=== PATIENT | male | born 1990 | race Caucasian/White ===

== ENCOUNTER 2022-03-21 21:45 | Observation (INO) | payer BC, SELFPAY ==
[2022-03-21] VITALS (8 sets, daily range): BP systolic 136–165; BP diastolic 56–96; PULSE 125–157; RESP 16–18; TEMP 37.7; O2SAT 97–100; BMI 24.0
--- NOTE | 2022-03-21 21:54 | ED_ITS ---
HPI - Chest Pain General: Chief Complaint: Chest Pain Stated Complaint: CHEST PAIN Time Seen by Provider: 03/21/22 21:46 Source: patient and EMS Mode of arrival: EMS Limitations: no limitations History of Present Illness: 32-year-old male has a history of hypertension states that he started having palpitations roughly 5 6 hours ago. He states that has been constant his heart rates been in the 150s. He does appear to be in SVT and called EMS they tried vagal maneuvers that were unsuccessful. He de nies any worsening proving factors denies any chest pain. Associated symptoms: Reports palpitations; Deny abdominal pain, dyspnea, fever(s), nausea or vomiting Review of Systems Const: Denies: fever(s), chills, body aches or change in appetite Eyes: Denies: blurry vision or eye discomfort ENMT: Denies: throat pain or dental pain Card: Reports: palpitations Resp: Denies: dyspnea GI: Denies: abdominal pain, nausea, vomiting or diarrhea : Denies: dysuria Musc: Denies: neck pain or back pain Skin/Breast: Denies: rash Neuro: Denies: headache(s) Psych: Denies: depression Bry/Lymph: Denies: easy bruising All/Imm: Denies: urticaria PFSH ED PFSH: Medical History (Updated 03/21/22 @ 21:55 by Lavonne Isabel MD) Hypertension Social History (Updated 03/21/22 @ 21:55 by Lavonne Isabel MD) Smoking and tobacco status: former smoker Physical Exam Const: COMMON NORMALS: no acute distress, patient oriented x3 and healthy appearing HENMT: COMMON NORMALS: normocephalic and atraumatic HEAD & SCALP: normocephalic and atraumatic Eye: COMMON NORMALS: Equal, round and reactive pupils present and EOMs intact bilaterally PUPIL: Yes Equal, round and reactive pupils present Neck/C-Spine: COMMON NORMALS: full ROM and supple Chest: COMMONS NORMALS: normal inspection of the chest and normal palpation of entire chest wall Resp: COMMON NORMALS: normal respiratory effort, No retractions, No use of accessory muscles and clear to auscultation bilaterally AUSCULTATION: clear to auscultation bilaterally Cardio: COMMON NORMALS: regular rhythm and No murmurs present (Cardio) RATE: tachycardic RHYTHM: regular rhythm GI: COMMON NORMALS: Normal to inspection, nondistended, normoactive bowel sounds present, Soft to palpation, non-tender and no masses PALPATION: Yes Soft to palpation Extremity: COMMON NORMALS: normal to inspection and full ROM Neuro: COMMON NORMALS: patient oriented x3, moves all extremities and no focal motor deficits Psych: COMMON NORMALS: mental status grossly normal, Normal thought process present and cooperative THOUGHT PROCESS: Normal thought process present Skin: COMMON NORMALS: no rashes or lesions noted and no wounds GENERAL SKIN EXAM: no rashes or lesions noted Course Vital Signs: Vital signs: Vital Signs Temperature 99.9 F H 03/21/22 22:20 Pulse Rate 125 H 03/21/22 23:15 Respiratory Rate 16 03/21/22 23:15 Blood Pressure 145/77 03/21/22 23:15 Pulse Oximetry 97 03/21/22 23:15 MDM - Chest Pain Medical Decision Making Patient presents with atrial flutter his heart rate when he first got here is in the 150s 160s believe it was SVT gave him adenosine with no response did give him a dose of Cardizem he is slowed down to the 1 teens EKG does show atrial flutter. He has no history of atrial flutter new onset his drug screen here is negative D-dimer is negative first troponin is negative spoke to hospitalist will admit patient is on a Cardizem drip currently. Lab Data : 03/21/22 23:44 03/21/22 23:44 Radiology Impressions Chest X-Ray 03/21/22 22:16 IMPRESSION: No acute findings. Laboratory Results WBC 8.0 10^3/uL (4.0-10.0) 03/21/22 23:44 RBC 3.89 10^6/uL (4.1-5.3) L 03/21/22 23:44 Hgb 12.2 g/dL (11.7-16.6) 03/21/22 23:44 Hct 34.5 % (42.0-52.0) L 03/21/22 23:44 MCV 88.7 fl (80-94) 03/21/22 23:44 MCH 31.4 pg (28.0-34.0) 03/21/22 23:44 MCHC 35.4 g/dL (30.0-36.0) 03/21/22 23:44 RDW 12.5 % (12.1-15.1) 03/21/22 23:44 Plt Count 202 10^3/cmm (130-400) 03/21/22 23:44 MPV 11.5 fL (7.4-10.4) H 03/21/22 23:44 Neut % (Auto) 81.6 % 03/21/22 23:44 Lymph % (Auto) 5.1 % 03/21/22 23:44 Parke % (Auto) 11.1 % 03/21/22 23:44 Eos % (Auto) 1.1 % 03/21/22 23:44 Baso % (Auto) 0.5 % 03/21/22 23:44 Neut # (Auto) 6.52 10^3/uL (1.8-7.7) 03/21/22 23:44 Lymph # (Auto) 0.4 10^3/uL (0.8-4.8) L 03/21/22 23:44 Parke # (Auto) 0.9 10^3/uL (0.2-0.9) 03/21/22 23:44 Eos # (Auto) 0.1 10^3/uL (0.0-0.8) 03/21/22 23:44 Baso # (Auto) 0.0 10^3/uL (0.0-0.1) 03/21/22 23:44 Nucleated RBC % (auto) 0 % 03/21/22 23:44 Nucleated RBCs # 0.0 /100WBC 03/21/22 23:44 D-Dimer 0.20 ug/mIFEU (0-0.59) 03/21/22 23:44 Sodium 135 mmol/L (136-145) L 03/21/22 23:44 Potassium 3.6 mmol/L (3.5-5.1) 03/21/22 23:44 Chloride 100 mmol/L (98-107) 03/21/22 23:44 Carbon Dioxide 23 mmol/L (22-29) 03/21/22 23:44 Anion Gap 15.6 (5-19) 03/21/22 23:44 BUN 10 mg/dL (6-20) 03/21/22 23:44 Creatinine 1.1 mg/dL (0.7-1.2) 03/21/22 23:44 GFR Calculation 77.6 mL/min (90-130) L 03/21/22 23:44 Glucose 103 mg/dL (65-115) 03/21/22 23:44 Calculated Osmolality 279 mOsm/kg (285-295) L 03/21/22 23:44 Calcium 8.5 mg/dL (8.5-10.5) 03/21/22 23:44 Total Bilirubin 0.3 mg/dL (0.15-1.2) 03/21/22 23:44 AST 20 U/L (0-40) 03/21/22 23:44 ALT 29 U/L (0-41) 03/21/22 23:44 Alkaline Phosphatase 51 IU/L (40-130) 03/21/22 23:44 Troponin T Baseline 6 ng/L (0-15) 03/21/22 23:44 Total Protein 6.7 g/dL (6.6-8.7) 03/21/22 23:44 Albumin 4.2 g/dL (3.5-5.2) 03/21/22 23:44 Globulin 2.5 g/dL (1.3-4.6) 03/21/22 23:44 Urine Color Yellow (Yellow) 03/21/22 23:20 Urine Appearance Clear (CLEAR) 03/21/22 23:20 Urine pH 6 (5-7) 03/21/22 23:20 Ur Specific [place] 1.000 (1.005-1.030) L 03/21/22 23:20 Urine Protein Neg (Negative) 03/21/22 23:20 Urine Glucose (UA) 1+ (Normal) H 03/21/22 23:20 Urine Ketones Negative (Negative) 03/21/22 23:20 Urine Blood Neg (Negative) 03/21/22 23:20 Urine Nitrate Negative (Negative) 03/21/22 23:20 Urine Bilirubin Neg (Negative) 03/21/22 23:20 Urine Urobilinogen Norm mg/dL (Negative) 03/21/22 23:20 Ur Leukocyte Esterase Negative (Negative) 03/21/22 23:20 Urine Opiates Screen Negative ng/mL (Negative) 03/21/22 23:20 Ur Barbiturates Screen Negative ng/mL (Negative) 03/21/22 23:20 Ur Phencyclidine Scrn Negative ng/mL (Negative) 03/21/22 23:20 Ur Amphetamines Screen Negative ng/mL (Negative) 03/21/22 23:20 U Benzodiazepines Scrn Negative ng/mL (Negative) 03/21/22 23:20 Urine Cocaine Screen Negative ng/mL (Negative) 03/21/22 23:20 U Marijuana (THC) Screen Negative ng/mL (Negative) 03/21/22 23:20 EKG Data EKG 1: I personally reviewed and interpreted this EKG as follows: EKG interpretation date: 03/21/22 EKG interpretation time: 21:54 Interpretation: svt hr [address] elevation EKG 2: I personally reviewed and interpreted this EKG as follows: EKG interpretation date: 03/21/22 EKG interpretation time: 22:24 Interpretation: atrial flutter hr [address] or t wave abnormalities qrs 97 qtc 355 Coding Level of Care Code ED Small Business Consultant for Chg Fwd Exam Comprehensive
[2022-03-21] MEDS: adenosine 3 mg/mL SDV 2mL 12 MG IVP ×2 (21:55→22:09)
[2022-03-21] MEDS: sodium chloride 0.9% 1,000 ML 999 ML IV ×2 (22:10→23:23)
--- NOTE | 2022-03-21 22:16 | ECG_ITS ---
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 Measurements Intervals [place] Rate: P: [place]: QRS: QRSD: T: QT: QTc: Interpretive Statements ATRIAL FLUTTER No previous ECG available for comparison Electronically Signed On 03-22-2022 22:30:50 CDT by Ranjit Cuenca M.D. [id number]
--- NOTE | 2022-03-21 22:16 | XRR_ITS ---
PROCEDURE INFORMATION: Exam: XR Chest Exam date and time: 03/21/2022 10:30 PM Age: 32 years old Clinical indication: Cough and fever; Additional info: Cp, fever, tachycardia TECHNIQUE: Imaging protocol: Radiologic exam of the chest. Views: 1 view. COMPARISON: No relevant prior studies available. FINDINGS: Lungs: Unremarkable. No consolidation. Pleural spaces: Unremarkable. No pleural effusion. No pneumothorax. Heart/Mediastinum: Unremarkable. No cardiomegaly. Bones/joints: Unremarkable. XR/XR chest 1V portable [id number] IMPRESSION: No acute findings.
--- NOTE | 2022-03-21 22:25 | ECG_ITS ---
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 Measurements Intervals [place] Rate: 130 P: [place]: QRS: 74 QRSD: 97 T: -46 QT: 278 QTc: 409 Interpretive Statements ATRIAL FLUTTER/TACHYCARDIA WITH RAPID VENTRICULAR RESPONSE ST DEVIATION AND MODERATE T-WAVE ABNORMALITY, CONSIDER INFERIOR ISCHEMIA [-0.1+ mV T-WAVE IN II/aVF] Compared to ECG 03/21/2022 20:51:44 T-wave abnormality now present Possible ischemia now present Electronically Signed On 03-22-2022 22:30:31 CDT by Ranjit Cuenca M.D. [email or web address].[employer]/store/NU/[id number] f
[2022-03-21] MEDS: dilTIAZem 5 mg/mL SDV 5 mL 20 MG IVP (23:22)
[2022-03-21] MEDS: acetaminophen 500 mg Tablet 1000 MG PO (23:22)
[2022-03-21 23:56] LABS: Amphetamines Screen Urine Negative (Negative); Barbiturates Screen Urine Negative (Negative); Benzodiazepines Screen Urine Negative (Negative); Cocaine Screen Urine Negative (Negative); Opiate Screen Urine Negative (Negative); PCP Screen Urine Negative (Negative); THC Screen Urine Negative (Negative)
[2022-03-22] VITALS (83 sets, daily range): BP systolic 95–139; BP diastolic 37–78; PULSE 86–129; RESP 0–33; TEMP 36.7–38.1; O2SAT 89–99; BMI 21.2
[2022-03-22 00:19] LABS: Basophils % 0.5 %; Eosinophils # 0.1 10^3/uL (0.0-0.8); Eosinophils % 1.1 %; Hematocrit 34.5 % (42.0-52.0); Hemoglobin 12.2 g/dL (11.7-16.6); Lymphocytes # 0.4 10^3/uL (0.8-4.8); Lymphocytes % 5.1 %; Mean Corpuscular HGB Conc 35.4 g/dL (30.0-36.0); Mean Corpuscular Hemoglobin 31.4 pg (28.0-34.0); Mean Corpuscular Volume 88.7 fl (80-94); Mean Platelet Volume 11.5 fL (7.4-10.4); Monocytes # 0.9 10^3/uL (0.2-0.9); Monocytes % 11.1 %; Neutrophils # 6.52 10^3/uL (1.8-7.7); Neutrophils % 81.6 %; Nucleated Red Blood Cells % 0 %; Platelet Count 202 10^3/cmm (130-400); Red Blood Count 3.89 10^6/uL (4.1-5.3); Red Cell Distribution Width 12.5 % (12.1-15.1)
[2022-03-22 00:22] LABS: Alanine Aminotransferase 29 U/L (0-41); Albumin Level 4.2 g/dL (3.5-5.2); Alkaline Phosphatase 51 IU/L (40-130); Anion Gap 15.6 (5-19); Aspartate Amino Transferase 20 U/L (0-40); Blood Urea Nitrogen 10 mg/dL (6-20); Calcium 8.5 mg/dL (8.5-10.5); Carbon Dioxide 23 mmol/L (22-29); Chloride 100 mmol/L (98-107); Globulin 2.5 g/dL (1.3-4.6); Glomerular Filtration Rate 77.6 mL/min (90-130); Glucose 103 mg/dL (65-115); Osmolality Calculated 279 mOsm/kg (285-295); Potassium 3.6 mmol/L (3.5-5.1); Sodium 135 mmol/L (136-145); Total Bilirubin 0.3 mg/dL (0.15-1.2); Total Protein 6.7 g/dL (6.6-8.7)
[2022-03-22 00:23] LABS: Troponin(5th) Baseline 6 ng/L (0-15)
--- NOTE | 2022-03-22 00:25 | ECG_ITS ---
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 Measurements Intervals [place] Rate: 125 P: [place]: QRS: 59 QRSD: 90 T: 11 QT: 301 QTc: 434 Interpretive Statements SINUS TACHYCARDIA NONSPECIFIC T-WAVE ABNORMALITY Compared to ECG 03/21/2022 22:24:11 Possible ischemia no longer present T-wave abnormality still present Electronically Signed On 03-22-2022 22:34:01 CDT by Ranjit Cuenca M.D. [email or web address]/store/[id number]
[2022-03-22 00:43] LABS: Add Urine Microscopic? NO; Bilirubin Urine Neg (Negative); Blood Urine Neg (Negative); Glucose Urine UA 1+ (Normal); Ketones Urine Negative (Negative); Leukocyte Esterase Urine Negative (Negative); Nitrate Urine Negative (Negative); Protein Urine Neg (Negative); Urine Appearance Clear (CLEAR); Urine Color Yellow (Yellow); Urobilinogen Urine Norm (Negative); pH Urine 6 (5-7)
[2022-03-22 00:44] LABS: Charge for UA Resulting for Rev
--- NOTE | 2022-03-22 00:45 | PC.NURSE ---
Per Dr. Rodriguez patient can go to ICU as a CSU overflow for cardiac monitoring.
[2022-03-22 00:57] LABS: SARS Covid-2 Antigen Positive (Negative)
--- NOTE | 2022-03-22 01:20 | P.HP_ITS ---
Providers/Chief Complaint Admitting Physician: Zack Rodriguez MD Chief Complaint: CHEST PAIN History of Present Illness Yoan Carranza is a 32 year old male with past medical history of hypertension came in with chief complaint of acute onset of palpitation going on for the last 5 to 6 hours, during that spell he was complaining of chest pain shortness of breath dizziness. Currently he is denied any fever cough, nausea vomiting, abdominal pain or urinary discomfort; Upon arrival in the ER: Initially it was thought to be SVT based on the EKG: Patient failed adenosine. Thereafter he was started on Cardizem drip after 40 of Cardizem IV ( 20,10,10 ) EKG is: A flutter with RVR X-ray chest: No effusion no infiltrates no pneumothorax Pertinent labs: WBC : 8 , H&H:12/34 , PLT : 202 , serum sodium 135, serum potassium 3.6, BUN / serum creatinine 10/1.1, Troponin trend: 6 AST ALT alk phos total bilirubin normal Urine tox negative Rapid COVID : Positive Review of Systems General: Reports: 10 or more systems reviewed and unremarkable except in HPI and below Const: Denies: fever(s), chills, body aches, change in appetite or diaphoresis Card: Reports: palpitations; Denies: edema, swelling of feet/ankles, dyspnea on exertion, orthopnea or leg pain with exertion Resp: Denies: dyspnea, productive cough, wheezing or pain on inspiration GI: Denies: abdominal pain, nausea, vomiting, diarrhea or constipation : Denies: flank pain or difficulty urinating Musc: Denies: back pain, extremity pain or extremity swelling Neuro: Denies: headache(s), difficulty walking or confusion Medications/Allergies Allergies Allergy/AdvReac Type Severity Reaction Status Date / Time No Known Allergies Allergy Verified 03/21/22 21:46 PFSH Acute PFSH: Medical History (Updated 03/22/22 @ 01:31 by Zack Rodriguez MD) Hypertension Social History (Updated 03/21/22 @ 21:55 by Lavonne Isabel MD) Smoking and tobacco status: former smoker Vitals/I&O/Wt Last Vital Signs Temp 99.9 F H 03/21/22 22:20 Pulse 120 H 03/22/22 00:56 Resp 17 03/22/22 00:56 BP 127/64 03/22/22 00:56 Pulse Ox 96 03/22/22 00:56 03/21/22 03/21/22 03/22/22 14:59 22:59 06:59 Intake Total 1999 Balance 1999 Weight last 48 hrs Weight 77.111 kg Physical Exam Const: COMMON NORMALS: patient oriented x3 HENMT: COMMON NORMALS: normocephalic and atraumatic HEAD & SCALP: normocephalic and atraumatic Resp: COMMON NORMALS: clear to auscultation bilaterally AUSCULTATION: clear to auscultation bilaterally Cardio: COMMON NORMALS: regular rate, regular rhythm, S1 normal heart sound present, S2 normal heart sound present, No gallops present (Cardio), No murmurs present (Cardio), No rub (Cardio) and Peripheral pulses 2+ throughout RATE: regular rate RHYTHM: regular rhythm HEART SOUNDS: S1 normal heart sound present and S2 normal heart sound present PERIPHERAL PULSES: Peripheral pulses 2+ throughout GI: COMMON NORMALS: Normal to inspection, nondistended, normoactive bowel sounds present, Soft to palpation, non-tender, No hepatosplenomegaly present and no masses AUSCULTATION: Yes normoactive bowel sounds PALPATION: Yes Soft to palpation and Yes No hepatosplenomegaly present RECTAL EXAM: Yes deferred Extremity: COMMON NORMALS: no clubbing, cyanosis or edema and no pedal edema Neuro: COMMON NORMALS: patient oriented x3 Data : 03/22/22 02:51 03/22/22 02:51 A&P Assessment and plan (1) Atrial flutter with rapid ventricular response: Status: Acute (2) COVID-19: Status: Acute Plan 32 year old male with past medical history of hypertension came in with chief complaint of acute onset of palpitation going on for the last 5 to 6 hours, during that spell he was complaining of chest pain shortness of breath dizziness. Currently he is denied any fever cough, nausea vomiting, abdominal pain or urinary discomfort; Assessment: Atrial flutter with RVR COVID-19 Plan: Follow 2D echo TSH HbA1c lipid panel [id number]: 1 Continue Cardizem drip Cardizem 60 p.o. every 6h Possible cardiology consult CODE STATUS: Full code DVT prophylaxis: On Lovenox Attestations Medical Necessity Statement*: Patient is to be in hospital for management of flutter with RVR.Anticipated length of stay greater than 2 midnights. Time Spent in Patient Care: Greater than 35 minutes (>than 50% of time spent in counselling and/or direct pt care on unit) . Coding Level of Care Code Acute Food And Beverage Controller for [facility] Fwd Exam Detailed Diagnoses Atrial flutter with rapid ventricular response I48.92 COVID-19 U07.1
--- NOTE | 2022-03-22 01:21 | USCV_ITS ---
Johanna Carranzan Age: 32 Gender: M : 1990 Exam Date: 03/22/2022 03:07 Ordering Phys: Zack Rodriguez MD Technologist: CYNTHIA [place] [facility] [place]: new onset Afib, COVID ISOLATION. No prior hx COVID. No hx cardiac intervention. BP: 113 / 53 HR: 98 Rhythm: Sinus Technical Quality: Adequate MEASUREMENTS (Male / Female) Normal Values 2D ECHO LV Diastolic Diameter PLAX 4.2 cm 4.2 - 5.9 / 3.9 - 5.3 cm LV Systolic Diameter PLAX 2.2 cm IVS Diastolic Thickness 1.3 cm 0.6 - 1.0 / 0.6 - 0.9 cm IVS Systolic Thickness 2.0 cm LVPW Diastolic Thickness 1.0 cm 0.6 - 1.0 / 0.6 - 0.9 cm LVPW Systolic Thickness 1.9 cm LVOT Diameter 2.1 cm LV Ejection Fraction 2D Teich 78.0 % LV Ejection Fraction MOD 2C 76.4 % LV Ejection Fraction 2C AL 77.5 % LA Diameter 3.3 cm LA Width 3.6 cm LA Height 4.2 cm RA Width 2.2 cm RA Height 3.9 cm Aorta at Sinotubular Diameter 2.6 cm IVC Diameter 1.6 cm M-MODE Aortic Annulus Diameter 2.8 cm LA Ao Ratio MM 1.2 MV E Point Septal Separation 0.3 cm DOPPLER AV Peak Velocity 132.0 cm/s LVOT Peak Velocity 155.0 cm/s AV Area Cont Eq vti 4.0 cm squared AV Area Cont Eq pk 4.1 cm squared MV Peak Velocity 139.0 cm/s MV Area PHT 4.2 cm squared Mitral E to A Ratio 2.0 MV E' Velocity 70.0 cm/s Mitral E to MV E' Ratio 7.1 Mitral E to LV E' Lateral Ratio 6.8 Mitral E to LV E' Septal Ratio 7.4 TR Peak Velocity 216.0 cm/s TR Peak Gradient 18.7 mmHg TV Peak E Velocity 74.0 cm/s Right Atrial Pressure 5.0 mmHg Pulmonary Artery Systolic Pressu 23.7 mmHg PV Peak Velocity 101.0 cm/s RV Acceleration Time 0.1 s RV Ejection Time 0.3 s RV AcT/ET 0.3 FINDINGS Left Ventricle Normal left ventricular size. LV systolic function is normal with EF of 60-65%.No regional wall motion abnormalities. Right Ventricle The right ventricle is normal in size and function. Right Atrium The right atrium is normal in size. Left Atrium The left atrium is normal in size. Mitral Valve Structurally normal mitral valve without significant stenosis or prolapse. There is no mitral regurgitation. Aortic Valve Structurally normal aortic valve without significant sclerosis or stenosis. There is no aortic regurgitation. Tricuspid Valve Structurally normal tricuspid valve without significant stenosis. Trace tricuspid regurgitation. Pulmonary artery systolic pressure is normal. Pulmonic Valve Grossly normal. Trace pulmonic regurgitation Pericardium Normal pericardium without effusion. Aorta Normal ascending aorta dimension. IVC CONCLUSIONS LV systolic function is normal with EF of 60-65% Trace tricuspid regurgitation.Trace pulmonic regurgitation No significant valvular heart disease No comparison studies are available. Ranjit Cuenca MD (Electronically Signed) Final Date: 22 March 2022 11:37 S
[2022-03-22] MEDS: dilTIAZem 60 mg Tablet PO (01:44)
[2022-03-22] MEDS: enoxaparin 30 mg/0.3 mL Syringe SUBCUT (01:44)
[2022-03-22] MEDS: acetaminophen 325 mg Tablet 650 MG PO (01:45)
[2022-03-22 04:15] LABS: Basophils % 0.3 %; Eosinophils % 0.5 %; Hematocrit 34.6 % (42.0-52.0); Hemoglobin 12.1 g/dL (11.7-16.6); Lymphocytes # 0.4 10^3/uL (0.8-4.8); Lymphocytes % 5.8 %; Mean Corpuscular Hemoglobin 31.5 pg (28.0-34.0); Mean Corpuscular Volume 90.1 fl (80-94); Mean Platelet Volume 12.2 fL (7.4-10.4); Monocytes # 0.9 10^3/uL (0.2-0.9); Monocytes % 11.8 %; Neutrophils # 6.13 10^3/uL (1.8-7.7); Neutrophils % 81.1 %; Nucleated Red Blood Cells % 0 %; Platelet Count 179 10^3/cmm (130-400); Red Blood Count 3.84 10^6/uL (4.1-5.3); Red Cell Distribution Width 12.6 % (12.1-15.1); White Blood Count 7.6 10^3/uL (4.0-10.0)
--- NOTE | 2022-03-22 04:25 | ECG_ITS ---
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 Measurements Intervals [place] Rate: 99 P: 49 [place]: 171 QRS: 69 QRSD: 90 T: 0 QT: 320 QTc: 411 Interpretive Statements SINUS RHYTHM Compared to ECG 03/22/2022 01:10:00 Atrial flutter no longer present T-wave abnormality no longer present Electronically Signed On 03-22-2022 22:33:12 CDT by Ranjit Cuenca M.D. [email or web address].[employer]/store/[id number]
[2022-03-22 04:41] LABS: Alanine Aminotransferase 26 U/L (0-41); Alkaline Phosphatase 50 IU/L (40-130); Aspartate Amino Transferase 21 U/L (0-40); Blood Urea Nitrogen 10 mg/dL (6-20); Calcium 8.4 mg/dL (8.5-10.5); Carbon Dioxide 18 mmol/L (22-29); Chloride 103 mmol/L (98-107); Cholesterol 148 mg/dL (0-200); Estmated Average Glucose 123; Globulin 2.2 g/dL (1.3-4.6); Glomerular Filtration Rate 77.6 mL/min (90-130); Glucose 95 mg/dL (65-115); HDL Cholesterol 40 mg/dL (60-100); Hemoglobin A1C 5.9 % (4.0-6.0); LDL Cholesterol Calculated 79 mg/dL (50-129); LDL HDL Ratio 1.98 RATIO (0.00-3.22); Magnesium 1.5 mg/dL (1.7-2.3); NT Pro B Type Natriuretic Pept 302 pg/mL (0-125); Osmolality Calculated 281 mOsm/kg (285-295); Sodium 136 mmol/L (136-145); Thyroid Stimulating Hormone 0.62 uIU/mL (0.27-4.20); Total Bilirubin 0.3 mg/dL (0.15-1.2); Total Protein 6.2 g/dL (6.6-8.7); Triglycerides 144 mg/dL (0-150)
--- NOTE | 2022-03-22 07:00 | ECG_ITS ---
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 Measurements Intervals [place] Rate: 104 P: 57 [place]: 188 QRS: 61 QRSD: 91 T: -5 QT: 309 QTc: 408 Interpretive Statements SINUS TACHYCARDIA NONSPECIFIC T-WAVE ABNORMALITY Compared to ECG 03/22/2022 04:19:14 T-wave abnormality now present Sinus rhythm no longer present Electronically Signed On 03-22-2022 22:33:01 CDT by Ranjit Cuenca M.D. [id number]
[2022-03-22 07:38] LABS: Troponin 5 6HR Delta 1.8 ng/L (0-12)
[2022-03-22] MEDS: dilTIAZem 60 mg Tablet 30 MG PO ×3 (07:45→19:01)
--- NOTE | 2022-03-22 12:35 | PM.MISC ---
Miscellaneous Note Note: Cardizem drip turned off, p.o. Cardizem was overlapped Afebrile D-dimer unremarkable Patient is doing fine Not endorsing new events Patient is stating that he was unaware of symptoms of COVID until he presented to the hospital, his daughter who is 11 years old and has COVID, I asked him to quarantine for 21 days I will put him on Eliquis for next 3 to 6 months Clinically he is doing fine Euvolemic Currently heart rate is fluctuating between sinus rhythm to A. fib intermittently Hemodynamically stable On room air doing well Nonfocal neuro exam Saturating well No audible stridor or wheezing Plan Start anticoagulating agent for next 3 to 6 months Start Cardizem p.o. regimen Keep potassium above 4 magnesium above 2 Currently for 21 days D-dimer unremarkable TSH is normal Plan to discharge him tomorrow
--- NOTE | 2022-03-22 18:31 | PC.NURSE ---
Resting in bed, AAOx3. Denies any needs. Ambulates to the bathroom s assist. C/O fatigue throughout the day. No issues noted. Will monitor.
[2022-03-22] MEDS: apixaban 5 mg Tablet PO (20:51)
[2022-03-23] VITALS (23 sets, daily range): BP systolic 103–126; BP diastolic 65–86; PULSE 68–96; RESP 15–26; TEMP 36.6–36.8; O2SAT 92–98; BMI 21.2
[2022-03-23] MEDS: dilTIAZem 60 mg Tablet 30 MG PO ×2 (02:09→07:50)
[2022-03-23 05:46] LABS: Basophils % 0.6 %; Hematocrit 40.3 % (42.0-52.0); Hemoglobin 13.3 g/dL (11.7-16.6); Lymphocytes # 0.8 10^3/uL (0.8-4.8); Lymphocytes % 26.8 %; Mean Corpuscular Hemoglobin 30.9 pg (28.0-34.0); Mean Corpuscular Volume 93.5 fl (80-94); Mean Platelet Volume 11.6 fL (7.4-10.4); Monocytes # 0.5 10^3/uL (0.2-0.9); Neutrophils # 1.75 10^3/uL (1.8-7.7); Nucleated Red Blood Cells % 0 %; Platelet Count 160 10^3/cmm (130-400); Red Blood Count 4.31 10^6/uL (4.1-5.3); Red Cell Distribution Width 12.5 % (12.1-15.1); White Blood Count 3.1 10^3/uL (4.0-10.0)
[2022-03-23 06:05] LABS: Alanine Aminotransferase 41 U/L (0-41); Albumin Level 4.1 g/dL (3.5-5.2); Alkaline Phosphatase 49 IU/L (40-130); Anion Gap 15.9 (5-19); Aspartate Amino Transferase 42 U/L (0-40); Blood Urea Nitrogen 13 mg/dL (6-20); Calcium 8.2 mg/dL (8.5-10.5); Carbon Dioxide 24 mmol/L (22-29); Chloride 101 mmol/L (98-107); Globulin 2.6 g/dL (1.3-4.6); Glomerular Filtration Rate 70.2 mL/min (90-130); Glucose 90 mg/dL (65-115); Osmolality Calculated 284 mOsm/kg (285-295); Potassium 3.9 mmol/L (3.5-5.1); Sodium 137 mmol/L (136-145); Total Bilirubin 0.3 mg/dL (0.15-1.2); Total Protein 6.7 g/dL (6.6-8.7)
[2022-03-23] MEDS: apixaban 5 mg Tablet PO (07:50)
--- NOTE | 2022-03-23 10:36 | PC.CHAP ---
x Pastoral Care Encounter/Spiritual Assessment Type of Contact [] Declined pearl maker visit [] Patient/Family/Request visit [] Outpatient visit [] Follow-up visit [] Physician referral [] Code/Alert [x] Routine visit [] Staff referral [] Actively dying [] Patient sleeping [] Family support [] [] Out of room [] Palliative care [] [x] Receiving care in room [] Pre-surgical visit [] Trauma [] Long length of stay [x] ICU visit [x] Other: covid Relational/Emotional Strength [] Patient feels connected with others/family/visitors/staff [] Distress [] Loneliness/isolation [] Abandonment Spirituality of Patient [] Person of [place] [] Attends Mormonism of their [place] [] Believes in Prayer [] Reads Bible or Mormonism materials [] There are Spiritual issues to be addressed Multimedia Technician Interventions [x] Prayer [] Active listening [] Non-anxious presence [] Spiritual/emotional support [] Crisis/trauma care [] Spiritual counseling [] Bereavement support [] Provided bereavement packet [] Provided Bible/devotional materials [] Provided toy/stuffed animal, coloring book to patient or family member [] Provided Communion [] Anointing/[place] [] Salvation [x] Completed spiritual assessment [] Other: Impact on Illness or Injury [] Angry [] Fearful [] Anxious [] Often cries [] Exhaustion [] Unable to work [] Unable to attend yarsani [] Unable to walk/stand [] Unable to read [] Unable to drive [] Unable to eat/drink [] Unable to sleep [] Unable to be with family [] Patient intubated [] Other: Summary Time spent with patient
--- NOTE | 2022-03-23 10:37 | P.DS_ITS ---
Discharge Providers Date of Admission: 03/22/22 00:28 Date of Discharge: March 23, 2022 Attending Provider at Admission: Zack Rodriguez MD Attending Provider at Discharge: Amauri Pickard MD Diagnoses at Discharge Discharge Diagnosis (1) Atrial flutter with rapid ventricular response: Status: Acute (2) COVID-19: Status: Acute Reason for Visit Reason for Visit: CHEST PAIN Hospital Course Hospital Course 32-year-old male who presented to the hospital chief complaint of palpitations. Patient stating that his daughter who is 11 years old he suffered from COVID-19 infection. Whole family is not vaccinated. For his A. fib RVR he is was admitted to the ICU, he did not require oxygen. D-dimer unremarkable. He was treated with steroids, anticoagulating agent and AV cole blocking agents. His A. fib RVR rhythm converted to sinus within few hours of admission. He was kept on metoprolol and Eliquis. He did not qualify for oxygen at the time of discharge. I will discharge him on 03/23 on room air, Eliquis 2-month supply, albuterol and metoprolol. Discontinue losartan. Quarantine for 5 days Physical Exam Narrative: Pleasant cooperative male Saturating well on room air Euvolemic S1, S2 Sinus rhythm Abdomen soft Nonfocal neuro exam Discharge Data Studies Completed and Pending Completed Studies During Hospitalization Category Date Time Status XR chest 1V portable [id number] Stat Exams 03/21/22 22:16 Completed CV. echo complete* [id number] Routine Ultrasound 03/22/22 01:21 Completed Pending at discharge Category Date Time Status Complete Blood Count w/Auto AM LABS Lab 03/24/22 04:00 Ordered Complete Blood Count w/Auto AM LABS Lab 03/25/22 04:00 Ordered Comprehensive Metabolic Panel AM LABS Lab 03/24/22 04:00 Ordered Comprehensive Metabolic Panel AM LABS Lab 03/25/22 04:00 Ordered Radiology Impressions Chest X-Ray 03/21/22 22:16 IMPRESSION: No acute findings. Laboratory Results WBC 3.1 10^3/uL (4.0-10.0) L 03/23/22 05:30 RBC 4.31 10^6/uL (4.1-5.3) 03/23/22 05:30 Hgb 13.3 g/dL (11.7-16.6) 03/23/22 05:30 Hct 40.3 % (42.0-52.0) L 03/23/22 05:30 MCV 93.5 fl (80-94) 03/23/22 05:30 MCH 30.9 pg (28.0-34.0) 03/23/22 05:30 MCHC 33.0 g/dL (30.0-36.0) D 03/23/22 05:30 RDW 12.5 % (12.1-15.1) 03/23/22 05:30 Plt Count 160 10^3/cmm (130-400) 03/23/22 05:30 MPV 11.6 fL (7.4-10.4) H 03/23/22 05:30 Neut % (Auto) 56.0 % 03/23/22 05:30 Lymph % (Auto) 26.8 % 03/23/22 05:30 [place] % (Auto) 16.0 % 03/23/22 05:30 Eos % (Auto) 0.0 % 03/23/22 05:30 Baso % (Auto) 0.6 % 03/23/22 05:30 Neut # (Auto) 1.75 10^3/uL (1.8-7.7) L 03/23/22 05:30 Lymph # (Auto) 0.8 10^3/uL (0.8-4.8) 03/23/22 05:30 [place] # (Auto) 0.5 10^3/uL (0.2-0.9) 03/23/22 05:30 Eos # (Auto) 0.0 10^3/uL (0.0-0.8) 03/23/22 05:30 Baso # (Auto) 0.0 10^3/uL (0.0-0.1) 03/23/22 05:30 Nucleated RBC % (auto) 0 % 03/23/22 05:30 Nucleated RBCs # 0.0 /100WBC 03/23/22 05:30 D-Dimer 0.20 ug/mIFEU (0-0.59) 03/21/22 23:44 Sodium 137 mmol/L (136-145) 03/23/22 05:30 Potassium 3.9 mmol/L (3.5-5.1) 03/23/22 05:30 Chloride 101 mmol/L (98-107) 03/23/22 05:30 Carbon Dioxide 24 mmol/L (22-29) 03/23/22 05:30 Anion Gap 15.9 (5-19) 03/23/22 05:30 BUN 13 mg/dL (6-20) 03/23/22 05:30 Creatinine 1.2 mg/dL (0.7-1.2) 03/23/22 05:30 GFR Calculation 70.2 mL/min (90-130) L 03/23/22 05:30 Glucose 90 mg/dL (65-115) 03/23/22 05:30 Estimat Average Glucose 123 03/22/22 02:51 Hemoglobin A1c 5.9 % (4.0-6.0) 03/22/22 02:51 Calculated Osmolality 284 mOsm/kg (285-295) L 03/23/22 05:30 Calcium 8.2 mg/dL (8.5-10.5) L 03/23/22 05:30 Magnesium 2.0 mg/dL (1.7-2.3) 03/23/22 05:30 Total Bilirubin 0.3 mg/dL (0.15-1.2) 03/23/22 05:30 AST 42 U/L (0-40) H 03/23/22 05:30 ALT 41 U/L (0-41) 03/23/22 05:30 Alkaline Phosphatase 49 IU/L (40-130) 03/23/22 05:30 Troponin T Baseline 6 ng/L (0-15) 03/21/22 23:44 Troponin T 120 Minute Cancelled 03/22/22 02:51 Delta Troponin T Cancelled 03/22/22 02:51 Troponin T Hi Sens 6Hr 7.80 ng/L (0-15) 03/22/22 06:45 Troponin T Hi Sens 6Hr Delta 1.8 ng/L (0-12) 03/22/22 06:45 NT-Pro-B Natriuret Pep 302 pg/mL (0-125) H 03/22/22 02:51 Total Protein 6.7 g/dL (6.6-8.7) 03/23/22 05:30 Albumin 4.1 g/dL (3.5-5.2) 03/23/22 05:30 Globulin 2.6 g/dL (1.3-4.6) 03/23/22 05:30 Triglycerides 144 mg/dL (0-150) 03/22/22 02:51 Cholesterol 148 mg/dL (0-200) 03/22/22 02:51 LDL Cholesterol, Calc 79 mg/dL (50-129) 03/22/22 02:51 HDL Cholesterol 40 mg/dL (60-100) L 03/22/22 02:51 LDL/HDL Ratio 1.98 RATIO (0.00-3.22) 03/22/22 02:51 Cholesterol/HDL Ratio 3.70 mg/dL (1.0-5.00) 03/22/22 02:51 TSH 0.62 uIU/mL (0.27-4.20) 03/22/22 02:51 Urine Color Yellow (Yellow) 03/21/22 23:20 Urine Appearance Clear (CLEAR) 03/21/22 23:20 Urine pH 6 (5-7) 03/21/22 23:20 Ur Specific [place] 1.000 (1.005-1.030) L 03/21/22 23:20 Urine Protein Neg (Negative) 03/21/22 23:20 Urine Glucose (UA) 1+ (Normal) H 03/21/22 23:20 Urine Ketones Negative (Negative) 03/21/22 23:20 Urine Blood Neg (Negative) 03/21/22 23:20 Urine Nitrate Negative (Negative) 03/21/22 23:20 Urine Bilirubin Neg (Negative) 03/21/22 23:20 Urine Urobilinogen Norm mg/dL (Negative) 03/21/22 23:20 Ur Leukocyte Esterase Negative (Negative) 03/21/22 23:20 Urine Opiates Screen Negative ng/mL (Negative) 03/21/22 23:20 Ur Barbiturates Screen Negative ng/mL (Negative) 03/21/22 23:20 Ur Phencyclidine Scrn Negative ng/mL (Negative) 03/21/22 23:20 Ur Amphetamines Screen Negative ng/mL (Negative) 03/21/22 23:20 U Benzodiazepines Scrn Negative ng/mL (Negative) 03/21/22 23:20 Urine Cocaine Screen Negative ng/mL (Negative) 03/21/22 23:20 U Marijuana (THC) Screen Negative ng/mL (Negative) 03/21/22 23:20 SARS-CoV-2 Ag (Rapid) Positive (Negative) H 03/21/22 23:42 Vitals Last Vital Signs Temp 97.8 F 03/23/22 08:00 Pulse 89 03/23/22 10:00 Resp 19 H 03/23/22 10:00 BP 121/86 03/23/22 10:00 Pulse Ox 94 03/23/22 10:00 Discharge Plan Discharge Patient Disposition: Home Condition: Stable Prescriptions: New acetaminophen 325 mg Tablet 650 mg PO Q6H PRN (Reason: Mild/Mod Pain Or Temp >/= 101) Qty: 60 0RF Eliquis 5 mg Tablet 5 mg PO BID@0900,2100 Qty: 60 0RF metoprolol tartrate 25 mg tablet 12.5 mg PO BID Qty: 60 1RF albuterol sulfate 90 mcg/actuation HFA aerosol inhaler 1 inh inhalation Q6H PRN (Reason: shortness of breath or wheezing) Qty: 8.5 1RF Discontinued losartan 25 mg tablet 25 mg PO DAILY 0RF Discharge Orders: Discharge Order (Routine); Ordered 03/23/22 Ordered By: Amauri Pickard Referrals: Fermin Rodriguez MD [Physician] - (New Patient cardiology follow up . May 22, at 10:45 am) Humberto Foster NP [Nurse Practitioner] - 4-7 days (Appointment with primary . Humberto Foster APN nurse ,scheduled .Saturday at time of 08:00 am ) Discharge Diet: Regular Discharge Activity: Increase activity as tolerated Patient Instructions: Metoprolol (By mouth), Apixaban (By mouth) (Eliquis), Hypertension, Atrial Flutter (DC), COVID-19 (Coronavirus Disease 2019) (DC), COVID-19 and Chronic Health Conditions (DC), Opioid Safety Discharge Attestations Time Spent in Discharge Care*: less than 30 min Quality Metrics Clinical Quality Measures [ No reported AMI, CVA or VTE this stay] Coding Level of Care Code Acute Chg FW DC note Diagnoses Atrial flutter with rapid ventricular response I48.92 COVID-19 U07.1
--- NOTE | 2022-03-23 11:19 | PC.NURSE ---
Pt teaching given, IV removed. No issues noted. Pt taken to waiting private vehicle. Tolerated well.
== END 2022-03-23 11:10 | disposition home or self-care (01) ==
LOC: ER 22:19 → ICU 03-22 00:46
PROVIDERS: Admitting Provider Internal Medicine; Emergency Provider Emergency Medicine; Visit Provider Internal Medicine
DX: U07.1 COVID-19 (principal); I48.92 Unspecified atrial flutter; I10 Essential (primary) hypertension; Z87.891 Personal history of nicotine dependence
CPT/HCPCS: 36415; 71045; 80053; 80061; 80306; 81003; 83036; 83735; 83880; 84443; 84484; 85025; 85378; 87426; 93005; 93306; 96365; 96366; 96372; 96375; 96376; 99285; G0378; J0153; J1650; J3475; J3490; J7030

== ENCOUNTER 2022-05-09 21:50 | Emergency (ER) | payer BC, SELFPAY ==
[2022-05-09 21:59] VITALS: BP 149/81; PULSE 106; RESP 16; TEMP 36.9; O2SAT 98; BMI 27.1
--- NOTE | 2022-05-09 22:15 | XRR_ITS ---
PROCEDURE INFORMATION: Exam: XR Chest Exam date and time: 05/09/2022 10:20 PM Age: 32 years old Clinical indication: Angina; Additional info: Chest pain TECHNIQUE: Imaging protocol: Radiologic exam of the chest. Views: 1 view. COMPARISON: CR XR chest 1V portable [id number] 03/21/2022 10:30 PM FINDINGS: Lungs: Unremarkable. No consolidation. Pleural spaces: Unremarkable. No pleural effusion. No pneumothorax. Heart/Mediastinum: Unremarkable. No cardiomegaly. Bones/joints: Unremarkable. XR/XR chest 1V portable [id number] IMPRESSION: No acute findings.
--- NOTE | 2022-05-09 22:24 | ECG_ITS ---
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 Measurements Intervals [place] Rate: 106 P: 58 TX: 183 QRS: 51 QRSD: 98 T: 10 QT: 316 QTc: 421 Interpretive Statements SINUS TACHYCARDIA NONSPECIFIC T-WAVE ABNORMALITY ABNORMAL RHYTHM ECG Compared to ECG 03/22/2022 07:46:41 No significant changes Electronically Signed On 05-10-2022 18:41:44 CDT by Myrna Alex M.D. [id number]
--- NOTE | 2022-05-09 22:24 | W.ED.ARRPALP ---
HPI - Arrhythmia/Palpitations General: Chief Complaint: Arrhythmia/Palpitations Stated Complaint: ANXIETY Time Seen by Provider: 05/09/22 22:14 Source: patient Mode of arrival: EMS Limitations: no limitations History of Present Illness: Patient is a nice 32-year-old male who presents to ED today for a complaint of a rapid heartbeat/palpitations. Patient states prior to arrival he began feeling very anxious and feeling like his heart was racing. He states pulse rate was in the 150s. Patient was seen here back in February for similar episode. During that visit initial EKG was concerning for SVT. Patient failed treatment with Adenosine and was given Cardizem boluses and eventually started on a Cardizem drip and admitted to the hospital. Patient was eventually diagnosed with atrial flutter with RVR. He was placed/discharged on Metoprolol and Eliquis. He states he has a follow-up cardiology appointment this month. He states he had not had any further episodes since his discharge apart from today. MD complaint: rapid heart beat, heart racing , palpitations, irregular heart beat and atrial fibrillation Onset (ago): hour(s) Duration: now resolved Arrhythmia history: atrial fibrillation, SVT and on anti-coagulants Associated symptoms: Deny pre-syncope or syncope Treatments prior to arrival: beta-hamida (takes BID) Review of Systems Const: Denies: fever(s), chills or body aches Card: Reports: palpitations and irregular heart rhythm; Denies: chest pain, edema, swelling of feet/ankles, lightheadedness, syncope, pre-syncope, dyspnea on exertion, orthopnea, leg pain with exertion or acrocyanosis Resp: Denies: dyspnea, productive cough, non-productive cough, wheezing, pain on inspiration, hemoptysis or chest congestion Musc: Denies: neck pain, back pain, extremity pain or joint pain Skin/Breast: Denies: rash Neuro: Denies: headache(s), numbness in extremities, weakness in extremities, sensory changes or dizziness [facility] ED PFSH: Medical History Atrial fibrillation Hypertension Social History Smoking and tobacco status: former smoker Physical Exam Const: COMMON NORMALS: no acute distress, average body habitus, patient oriented x3, no limitations, healthy appearing, alert and well nourished ORIENTATION/CONSCIOUSNESS: Yes awake, Yes oriented to person, Yes oriented to place and Yes oriented to time Neck/C-Spine: GENERAL: Yes normal visual inspection Resp: COMMON NORMALS: normal respiratory effort and clear to auscultation bilaterally AUSCULTATION: clear to auscultation bilaterally Cardio: COMMON NORMALS: regular rhythm RATE: tachycardic (mild upon arrival at 106; sinus rhythm) RHYTHM: regular rhythm Extremity: COMMON NORMALS: capillary refill normal, no clubbing, cyanosis or edema, no calf tenderness and no pedal edema Neuro: ANDREINA COMA SCALE: document GCS findings Andreina coma scale eye opening: Spontaneous [place] coma scale verbal response: Orientated Andreina coma scale motor response: Obey commands Andreina coma scale total score: 15 COMMON NORMALS: patient oriented x3 SENSORIUM/ORIENTATION: Yes alert, Yes oriented to person, Yes oriented to place and Yes oriented to time Course Vital Signs: Vital signs: Vital Signs Temperature 98.4 F 05/09/22 21:59 Pulse Rate 102 H 05/09/22 22:39 Respiratory Rate 16 05/09/22 22:39 Blood Pressure 143/82 05/09/22 22:39 Pulse Oximetry 95 05/09/22 22:39 MDM - Arrhythmia/Palpitations Medical Decision Making Patient upon arrival was sinus tachycardia with a heart rate of 106. He was given 2.5mg IV metoprolol. After that patient remained in normal sinus rhythm with a rate in the 90s. Patient has not had any episodes of atrial fib/flutter/SVT during his stay. Work up here benign. He normally takes 12.5mg metoprolol BID. Will have him take 25mg in the morning and his normal 12.5mg in the evening. Will see about getting him a sooner appointment. Discussed returning to ED for any further episodes. Lab Data : 05/09/22 23:25 05/09/22 23:25 Radiology Impressions Chest X-Ray 05/09/22 22:15 IMPRESSION: No acute findings. Laboratory Results WBC 8.7 10^3/uL (4.0-10.0) 05/09/22 23:25 RBC 4.24 10^6/uL (4.1-5.3) 05/09/22 23:25 Hgb 13.3 g/dL (11.7-16.6) 05/09/22: Hct 38.2 % (42.0-52.0) L 05/09/22: MCV 90.1 fl (80-94) 05/09/22: MCH 31.4 pg (28.0-34.0) 05/09/22: MCHC 34.8 g/dL (30.0-36.0) 05/09/22: RDW 13.0 % (12.1-15.1) 05/09/22: Plt Count 246 10^3/cmm (130-400) 05/09/22: MPV 11.3 fL (7.4-10.4) H 05/09/22: Neut % (Auto) 59.9 % 05/09/22: Lymph % (Auto) 25.8 % 05/09/22: [place] % (Auto) 11.0 % 05/09/22: Eos % (Auto) 2.0 % 05/09/22: Baso % (Auto) 0.7 % 05/09/22: Neut # (Auto) 5.22 10^3/uL (1.8-7.7) 05/09/22: Lymph # (Auto) 2.3 10^3/uL (0.8-4.8) 05/09/22: [place] # (Auto) 1.0 10^3/uL (0.2-0.9) H 05/09/22: Eos # (Auto) 0.2 10^3/uL (0.0-0.8) 05/09/22: Baso # (Auto) 0.1 10^3/uL (0.0-0.1) 05/09/22: Nucleated RBC % (auto) 0 % 05/09/22: Nucleated RBCs # 0.0 /100WBC 05/09/22: Sodium 136 mmol/L (136-145) 05/09/22: Potassium 3.4 mmol/L (3.5-5.1) L 05/09/22: Chloride 102 mmol/L (98-107) 05/09/22 23:25 Carbon Dioxide 23 mmol/L (22-29) 05/09/22 23:25 Anion Gap 14.4 (5-19) 05/09/22 23:25 BUN 12 mg/dL (6-20) 05/09/22 23:25 Creatinine 1.1 mg/dL (0.7-1.2) 05/09/22 23:25 GFR Calculation 77.6 mL/min (90-130) L 05/09/22 23:25 Glucose 131 mg/dL (65-115) H 05/09/22 23:25 Calculated Osmolality 284 mOsm/kg (285-295) L 05/09/22 23:25 Calcium 9.0 mg/dL (8.5-10.5) 05/09/22 23:25 Total Bilirubin 0.3 mg/dL (0.15-1.2) 05/09/22 23:25 AST 23 U/L (0-40) 05/09/22 23:25 ALT 28 U/L (0-41) 05/09/22 23:25 Alkaline Phosphatase 57 IU/L (40-130) 05/09/22 23:25 Troponin T Baseline 6 ng/L (0-15) 05/09/22 23:25 Total Protein 7.2 g/dL (6.6-8.7) 05/09/22 23:25 Albumin 4.6 g/dL (3.5-5.2) 05/09/22 23:25 Globulin 2.6 g/dL (1.3-4.6) 05/09/22 23:25 TSH 2.28 uIU/mL (0.27-4.20) 05/09/22 23:25 Discharge Plan Discharge Patient Disposition: Home Clinical Impression: History of atrial flutter Condition: Stable Prescriptions: No Action metoprolol tartrate 25 mg tablet 12.5 mg PO BID Qty: 60 6RF Xarelto 20 mg tablet 20 mg PO DAILY Qty: 30 11RF Rx Instructions: must administer with evening meal acetaminophen 325 mg Tablet 650 mg PO Q6H PRN (Reason: Mild/Mod Pain Or Temp >/= 101) Qty: 60 0RF albuterol sulfate 90 mcg/actuation HFA aerosol inhaler 1 inh inhalation Q6H PRN (Reason: shortness of breath or wheezing) Qty: 8.5 1RF Discharge Orders: Discharge ED (Routine); Ordered 05/10/22 Ordered By: Kimberly Ovalle Activity Restrictions/Additional Instructions: As we discussed I want you to begin taking a full 25 mg metoprolol in the morning and a 12.5 mg tablet in the evening. I will have case management work on possibly getting you a sooner cardiology follow-up appointment. You need to return to the emergency department for any further episodes of rapid heart rate, palpitations, chest pain, shortness of breath, or any other concerns you may have. Coding Level of Care Code ED R Developer for Theron Kaplan
[2022-05-09 22:39] VITALS: BP 143/82; PULSE 102; RESP 16; O2SAT 95
[2022-05-09] MEDS: metoprolol tartrate 1 mg/1 mL SDV 5 mL 2.5 MG IVP (23:04)
[2022-05-09 23:35] LABS: Basophils # 0.1 10^3/uL (0.0-0.1); Basophils % 0.7 %; Eosinophils # 0.2 10^3/uL (0.0-0.8); Hematocrit 38.2 % (42.0-52.0); Hemoglobin 13.3 g/dL (11.7-16.6); Lymphocytes # 2.3 10^3/uL (0.8-4.8); Lymphocytes % 25.8 %; Mean Corpuscular HGB Conc 34.8 g/dL (30.0-36.0); Mean Corpuscular Hemoglobin 31.4 pg (28.0-34.0); Mean Corpuscular Volume 90.1 fl (80-94); Mean Platelet Volume 11.3 fL (7.4-10.4); Neutrophils # 5.22 10^3/uL (1.8-7.7); Neutrophils % 59.9 %; Nucleated Red Blood Cells % 0 %; Platelet Count 246 10^3/cmm (130-400); Red Blood Count 4.24 10^6/uL (4.1-5.3); White Blood Count 8.7 10^3/uL (4.0-10.0)
--- NOTE | 2022-05-10 00:04 | ECG_ITS ---
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 Measurements Intervals [place] Rate: 97 P: 46 [place]: 186 QRS: 50 QRSD: 93 T: 2 QT: 330 QTc: 421 Interpretive Statements SINUS RHYTHM NONSPECIFIC T-WAVE ABNORMALITY Compared to ECG 05/09/2022 22:24:59 Sinus tachycardia no longer present T-wave abnormality still present Electronically Signed On 05-10-2022 18:57:12 CDT by Myrna Alex M.D. [id number] f
[2022-05-10 00:07] LABS: Troponin(5th) Baseline 6 ng/L (0-15)
[2022-05-10 00:24] LABS: Globulin 2.6 g/dL (1.3-4.6); Glomerular Filtration Rate 77.6 mL/min (90-130); Glucose 131 mg/dL (65-115); Thyroid Stimulating Hormone 2.28 uIU/mL (0.27-4.20)
[2022-05-10 00:25] LABS: Alanine Aminotransferase 28 U/L (0-41); Albumin Level 4.6 g/dL (3.5-5.2); Alkaline Phosphatase 57 IU/L (40-130); Anion Gap 14.4 (5-19); Aspartate Amino Transferase 23 U/L (0-40); Blood Urea Nitrogen 12 mg/dL (6-20); Carbon Dioxide 23 mmol/L (22-29); Chloride 102 mmol/L (98-107); Osmolality Calculated 284 mOsm/kg (285-295); Potassium 3.4 mmol/L (3.5-5.1); Sodium 136 mmol/L (136-145); Total Bilirubin 0.3 mg/dL (0.15-1.2); Total Protein 7.2 g/dL (6.6-8.7)
[2022-05-10 00:39] VITALS: BP 138/97; PULSE 97; RESP 17; O2SAT 98
[2022-05-10 01:13] VITALS: BP 138/97; PULSE 97; RESP 17; O2SAT 98
--- NOTE | 2022-05-10 10:37 | DCPLANNER ---
Addendum entered by Charlee Womack 05/11/22 14:33: Patient had a follow up appointment at [facility] - patient did attend appointment. Original Note: activities manager had message to schedule a follow up appointment for patient with cardiology. activities manager sent patients information to the front office staff at [facility]. Patients information will be printed and reviewed. Clinic will call patient with appointment information.
== END 2022-05-10 01:16 | disposition home or self-care (01) ==
PROVIDERS: Emergency Provider Physician Assistant
DX: I48.92 Unspecified atrial flutter (principal); Z87.891 Personal history of nicotine dependence; I10 Essential (primary) hypertension
CPT/HCPCS: 71045; 80053; 84443; 84484; 85025; 93005; 96374; 99285; J3490

== ENCOUNTER 2022-06-13 09:38 | Emergency (ER) | payer BC, SELFPAY ==
[2022-06-13 09:46] VITALS: BP 141/70; PULSE 69; RESP 16; TEMP 36.4; O2SAT 99; BMI 25.7
[2022-06-13 10:09] LABS: Basophils % 0.4 %; Eosinophils # 0.2 10^3/uL (0.0-0.8); Eosinophils % 2.4 %; Hematocrit 41.7 % (42.0-52.0); Hemoglobin 14.3 g/dL (11.7-16.6); Lymphocytes # 1.8 10^3/uL (0.8-4.8); Lymphocytes % 19.8 %; Mean Corpuscular HGB Conc 34.3 g/dL (30.0-36.0); Mean Corpuscular Hemoglobin 31.3 pg (28.0-34.0); Mean Corpuscular Volume 91.2 fl (80-94); Mean Platelet Volume 10.9 fL (7.4-10.4); Monocytes # 1.3 10^3/uL (0.2-0.9); Monocytes % 14.4 %; Neutrophils # 5.64 10^3/uL (1.8-7.7); Neutrophils % 62.7 %; Nucleated Red Blood Cells % 0 %; Platelet Count 246 10^3/cmm (130-400); Red Blood Count 4.57 10^6/uL (4.1-5.3); Red Cell Distribution Width 12.3 % (12.1-15.1)
--- NOTE | 2022-06-13 10:43 | W.ED.GENADLT ---
HPI - General Adult General: Chief complaint: General Medical Stated complaint: Took too much blood thinner Time Seen by Provider: 06/13/22 09:55 Source: patient Mode of arrival: ambulatory Limitations: no limitations History of Present Illness: 32-year-old male presents emergency room has been some issues regarding his Xarelto dose. He has a history of atrial fibrillation evidently there is some discussion between his records clerk primary care doctor about what dose he should be on he has been taking 20 twice a day recently a couple episodes of blood in the stool but that has stopped. He has not had any lightheadedness or dizziness. No active bleeding at this time. Onset (ago): week(s) Relieving factors: none Exacerbating factors: none Associated symptoms: Reports no associated symptoms; Deny malaise Review of Systems Const: Denies: fever(s), chills, body aches, change in appetite, fatigue or malaise GI: Denies: hematemesis, coffee ground emesis, diarrhea, hematochezia or melena PFSH ED PFSH: Medical History Atrial fibrillation Chest pain Hypertension Tried lisinopril, but did not like the way it made him feel On anticoagulant therapy Surgical History Hx of oral surgery Hx of vasectomy Family History Grandfather Clotting disorder Lung disease Stroke Family/Other CAD (coronary artery disease) Cancer Father Diabetes Grandmother Lung disease Grandfather Lung disease Denies family history of Dementia Chronic kidney disease (CKD) Suicide Anesthesia complication Bleeding disorder Social History Smoking and tobacco status: former smoker Alcohol intake: current Physical Exam Const: COMMON NORMALS: no acute distress GENERAL APPEARANCE: cooperative and comfortable ORIENTATION/CONSCIOUSNESS: Yes awake, Yes oriented to person, Yes oriented to place and Yes oriented to time Neuro: SENSORIUM/ORIENTATION: Yes oriented to person, Yes oriented to place and Yes oriented to time Course Vital Signs: Vital signs: Vital Signs Temperature 97.5 F L 06/13/22 09:46 Pulse Rate 69 06/13/22 09:46 Respiratory Rate 16 06/13/22 09:46 Blood Pressure 141/70 06/13/22 09:46 Pulse Oximetry 99 06/13/22 09:46 Oxygen Delivery Me thod 06/13/22 09:46 MDM - General Adult Medical Decision Making Hold 1 day and resume. Follow-up with primary care to reevaluate hemoglobin if has worsening bleeding recheck. Patient asked about us writing a prescription for Xarelto and mention that there is some uncertainty about the dose he should be on between the cardiology and primary care. Advised him that given this since I have the least amount of his history compared to the other 2 doctors I think it would be best if he contacted his records clerk and his primary care doctor and had them give him specific instructions on the dose and write his prescription so they are aware of where he is at with the medication. Medical Records I reviewed the patient's medical records. Lab Data I reviewed the patient's lab results. : 06/13/22 09:58 Laboratory Results WBC 9.0 10^3/uL (4.0-10.0) 06/13/22 09:58 RBC 4.57 10^6/uL (4.1-5.3) 06/13/22 09:58 Hgb 14.3 g/dL (11.7-16.6) 06/13/22 09:58 Hct 41.7 % (42.0-52.0) L 06/13/22 09:58 MCV 91.2 fl (80-94) 06/13/22 09:58 MCH 31.3 pg (28.0-34.0) 06/13/22 09:58 MCHC 34.3 g/dL (30.0-36.0) 06/13/22 09:58 RDW 12.3 % (12.1-15.1) 06/13/22 09:58 Plt Count 246 10^3/cmm (130-400) 06/13/22 09:58 MPV 10.9 fL (7.4-10.4) H 06/13/22 09:58 Neut % (Auto) 62.7 % 06/13/22 09:58 Lymph % (Auto) 19.8 % 06/13/22 09:58 [place] % (Auto) 14.4 % 06/13/22 09:58 Eos % (Auto) 2.4 % 06/13/22 09:58 Baso % (Auto) 0.4 % 06/13/22 09:58 Neut # (Auto) 5.64 10^3/uL (1.8-7.7) 06/13/22 09:58 Lymph # (Auto) 1.8 10^3/uL (0.8-4.8) 06/13/22 09:58 [place] # (Auto) 1.3 10^3/uL (0.2-0.9) H 06/13/22 09:58 Eos # (Auto) 0.2 10^3/uL (0.0-0.8) 06/13/22 09:58 Baso # (Auto) 0.0 10^3/uL (0.0-0.1) 06/13/22 09:58 Nucleated RBC % (auto) 0 % 06/13/22 09:58 Nucleated RBCs # 0.0 /100WBC 06/13/22 09:58 Discharge Plan Discharge Patient Disposition: Home Clinical Impression: Atrial fibrillation, On anticoagulant therapy Condition: Stable Prescriptions: No Action metoprolol tartrate 25 mg tablet 25 mg PO BID Qty: 180 3RF Rx Instructions: BID losartan 50 mg tablet 50 mg PO DAILY Qty: 90 3RF Xarelto 20 mg tablet 20 mg PO DAILY Qty: 90 3RF Rx Instructions: must administer with evening meal Discharge Orders: Discharge ED (Routine); Ordered 06/13/22 Ordered By: Augusto Huertas Referrals: Humberto Foster, ASSISTANT STORE MANAGER SALES [Primary Care Provider] - Patient Instructions: Opioid Safety, Pain Management Activity Restrictions/Additional Instructions: Hold Xarelto x1 day then resume once daily recheck a CBC within the next week. Coding Level of Care Code ED Pile Driving Supervisor for Chg Fwd Exam Problem Focused
== END 2022-06-13 10:53 | disposition home or self-care (01) ==
PROVIDERS: Emergency Provider Family Medicine; PCP Clinical Nurse Specialist Adult Health
DX: I48.91 Unspecified atrial fibrillation (principal); I10 Essential (primary) hypertension; Z79.01 Long term (current) use of anticoagulants; Z87.891 Personal history of nicotine dependence
CPT/HCPCS: 36415; 85025; 99283

== ENCOUNTER 2022-08-13 11:51 | Outpatient (CLI) | payer BC, SELFPAY ==
--- NOTE | 2022-08-13 12:03 | ECG_ITS ---
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 Interpretive Statements NAME OF STUDY: TREADMILL STRESS TEST INDICATION: Chest Pain, PROCEDURE: The baseline electrocardiogram showed normal sinus rhythm with normal ST-Ts. At the baseline, the patient's blood pressure was 134/81 mm Hg with a heart rate of 112. Some nonspecific T wave changes The patient exercised for 10 minutes on a standard Mohan protocol. Patient attained a maximum heart rate of 193 beats per minute(102% of the maximum predicted heart rate) with a blood pressure at the peak exercise of 191/103 mm Hg. The EKG at the peak exercise revealed no significant changes. Patient did not have any chest pain or any significant arrhythmis with the exercise Sestamibi was injected 1 minute prior to the peak exercise During the recovery phase, there were no new changes. Blood pressure at the end of the recovery phase was 121/75 mm Hg with a heart rate of 135 per minute. CONCLUSION: 1. No significant EKG changes with the treadmill exercise 2. No exercise-induced chest pain or cardiac arrhythmia 3. Good exercise tolerance, attained a maximum of 13.5 METs 4. Hypertensive response to exercise 5. Sestamibi/Sestamibi perfusion results pending; see separate report. Electronically Signed On 08-19-2022 17:24:15 MEDICAL ADMINISTRATOR by Fermin Rodriguez M.D. [id number]
[2022-08-13 13:51] VITALS: BMI 26.6
[2022-08-13 13:56] VITALS: BP 121/75; PULSE 122
== END 2022-08-13 11:52 | disposition home or self-care (01) ==
PROVIDERS: PCP Clinical Nurse Specialist Adult Health; Visit Provider Internal Medicine Cardiovascular Disease
DX: R07.9 Chest pain, unspecified (principal); I10 Essential (primary) hypertension
CPT/HCPCS: 93017

== ENCOUNTER 2022-08-15 09:36 | Emergency (ER) | payer BC, SELFPAY ==
[2022-08-15 09:39] VITALS: BP 137/94; PULSE 71; RESP 18; TEMP 36.6; O2SAT 98; BMI 25.1
--- NOTE | 2022-08-15 09:43 | XR_ITS ---
WS: [id number] Exam: XR chest 1V portable [id number] Date/Time of Exam: 08/15/2022 9:47 AM Reason For Exam: cp Comparison 05/09/2022. Findings: The lungs are clear and fully expanded. Costophrenic angles are sharp. No infiltrates. Bronchovascula r relief appears normal. Cardiac silhouette is unremarkable. Bony elements are intact. XR/XR chest 1V portable [id number] IMPRESSION: Unremarkable chest radiograph.
--- NOTE | 2022-08-15 09:45 | ED_ITS ---
Documented by User: HITESH Junior 08/15/22 14:26 HPI - Chest Pain General: Chief Complaint: Chest Pain Stated Complaint: chest/arm pain Time Seen by Provider: 08/15/22 09:38 History of Present Illness: Patient is a 32-year-old male comes in the ED with chest pain. Patient has a history of A. fib and hypertension. Patient had a cardiac stress test done 2 days ago and he was told to stop taking his metoprolol for that. chest pain started 2 days ago during his stress test. He notices chest pain more when he sitting down. Chest pain is located on the left side of chest and then radiates to his left upper arm. He describes the chest pain as being very mild. He was having chest pain earlier this morning but that has since resolved before coming to the ED. Patient just started taking his metoprolol again yesterday. Denies any shortness of breath, fevers, chills, nausea/vomiting, abdominal pain, bladder or bowel symptoms. Associated symptoms: Deny abdominal pain, dyspnea, fever(s), nausea, palpitations or vomiting Review of Systems Const: Denies: fever(s), chills or fatigue Eyes: Denies: change in vision or eye discomfort ENMT: Denies: throat pain, odynophagia, nasal discharge or nasal congestion Card: Reports: chest pain; Denies: palpitations, edema, swelling of feet/ankles, dyspnea on exertion or orthopnea Resp: Denies: dyspnea, productive cough or non-productive cough GI: Denies: abdominal pain, nausea, vomiting, diarrhea, constipation or hematochezia : Denies: flank pain, difficulty urinating, dysuria or hematuria Musc: Denies: neck pain, back pain or extremity swelling Skin/Breast: Denies: rash or new lesions Neuro: Denies: headache(s), numbness in extremities or weakness in extremities PFS ED PFSH: Medical History Atrial fibrillation Chest pain Hypertension Tried lisinopril, but did not like the way it made him feel On anticoagulant therapy Surgical History Hx of oral surgery Hx of vasectomy Family History Grandfather Clotting disorder Lung disease Stroke Family/Other CAD (coronary artery disease) Cancer Father Diabetes Grandmother Lung disease Grandfather Lung disease Denies family history of Dementia Chronic kidney disease (CKD) Suicide Anesthesia complication Bleeding disorder Social History Smoking and tobacco status: former smoker Alcohol intake: current Physical Exam Const: COMMON NORMALS: no acute distress, patient oriented x3, healthy appearing and alert GENERAL APPEARANCE: cooperative and comfortable HENMT: COMMON NORMALS: normocephalic HEAD & SCALP: normocephalic MOUTH: Normal oral and palatal mucosa present THROAT: posterior oropharynx normal and uvula midline Eye: COMMON NORMALS: conjunctivae normal GENERAL EYE: appearance normal, both eyes and all related structures CONJUNCTIVA: Yes conjunctivae normal Neck/C-Spine: COMMON NORMALS: supple GENERAL: Yes normal visual inspection Resp: COMMON NORMALS: normal respiratory effort, No retractions, No use of accessory muscles and clear to auscultation bilaterally AUSCULTATION: clear to auscultation bilaterally Cardio: COMMON NORMALS: regular rate, regular rhythm, S1 normal heart sound present, S2 normal heart sound present, No gallops present (Cardio), No clicks present (Cardio), No murmurs present (Cardio) and Peripheral pulses 2+ throughout RATE: regular rate RHYTHM: regular rhythm HEART SOUNDS: S1 normal heart sound present and S2 normal heart sound present PERIPHERAL PULSES: Peripheral pulses 2+ throughout GI: COMMON NORMALS: Normal to inspection, nondistended, normoactive bowel sounds present, Soft to palpation, non-tender and no masses PALPATION: Yes Soft to palpation : COMMON NORMALS: Yes no CVA tenderness BLADDER/KIDNEY EXAM: Yes no CVA tenderness Back/Pelvis: COMMON NORMALS: no CVA tenderness Extremity: COMMON NORMALS: normal to inspection Neuro: COMMON NORMALS: patient oriented x3 SENSORIUM/ORIENTATION: Yes alert GAIT: Yes Normal gait present Skin: GENERAL SKIN EXAM: dry skin Course Vital Signs: Vital signs: Vital Signs Temperature 98 F 08/15/22 09:39 Pulse Rate 71 08/15/22 09:39 Respiratory Rate 18 08/15/22 09:39 Blood Pressure 137/94 08/15/22 09:39 Pulse Oximetry 98 08/15/22 09:39 Oxygen Delivery Me thod 08/15/22 09:39 MDM - Chest Pain Medical Decision Making Patient is a 32-year-old male who comes to the ED with chest pain. Patient has a history of A. fib and hypertension and had a cardiac stress test done 2 days ago. He was told to stop taking the metoprolol for the stress test. He states that during his stress test he started developing left-sided chest pain that r adiates into left upper arm. He has continued to have it for the past 2 days. He started taking his metoprolol again yesterday. Here in the ED patient denies any current chest pains has not resolved before arriving to the ED. Vitals are stable exam of patient is benign. EKG showed normal sinus rhythm with no ST segment elevation or depression seen and a rate of 67 bpm. Chest x-ray showed no acute findings. Labs were unremarkable and troponin was negative. Patient was given a GI cocktail and stable for discharge home. He is diagnosed with atypical chest pain and told to follow-up with his PCP within the next week for reevaluation. Return ED precautions given. Patient understood agree with plan. Lab Data I reviewed the patient's lab results. : 08/15/22 10:03 08/15/22 10:03 Radiology Impressions Chest X-Ray 08/15/22 09:43 IMPRESSION: Unremarkable chest radiograph. Laboratory Results WBC 8.9 10^3/uL (4.0-10.0) 08/15/22 10:03 RBC 5.24 10^6/uL (4.1-5.3) 08/15/22 10:03 Hgb 15.9 g/dL (11.7-16.6) 08/15/22 10:03 Hct 46.8 % (42.0-52.0) 08/15/22 10:03 MCV 89.3 fl (80-94) 08/15/22 10:03 MCH 30.3 pg (28.0-34.0) 08/15/22 10:03 MCHC 34.0 g/dL (30.0-36.0) 08/15/22 10:03 RDW 12.7 % (12.1-15.1) 08/15/22 10:03 Plt Count 442 10^3/cmm (130-400) H 08/15/22 10:03 MPV 10.5 fL (7.4-10.4) H 08/15/22 10:03 Neut % (Auto) 54.4 % 08/15/22 10:03 Lymph % (Auto) 32.1 % 08/15/22 10:03 [place] % (Auto) 7.8 % 08/15/22 10:03 Eos % (Auto) 3.7 % 08/15/22 10:03 Baso % (Auto) 0.8 % 08/15/22 10:03 Neut # (Auto) 4.84 10^3/uL (1.8-7.7) 08/15/22 10:03 Lymph # (Auto) 2.9 10^3/uL (0.8-4.8) 08/15/22 10:03 [place] # (Auto) 0.7 10^3/uL (0.2-0.9) 08/15/22 10:03 Eos # (Auto) 0.3 10^3/uL (0.0-0.8) 08/15/22 10:03 Baso # (Auto) 0.1 10^3/uL (0.0-0.1) 08/15/22 10:03 Nucleated RBC % (auto) 0 % 08/15/22 10:03 Nucleated RBCs # 0.0 /100WBC 08/15/22 10:03 Sodium 139 mmol/L (136-145) 08/15/22 10:03 Potassium 4.2 mmol/L (3.5-5.1) 08/15/22 10:03 Chloride 100 mmol/L (98-107) 08/15/22 10:03 Carbon Dioxide 26 mmol/L (22-29) 08/15/22 10:03 Anion Gap 17.2 (5-19) 08/15/22 10:03 BUN 9 mg/dL (6-20) 08/15/22 10:03 Creatinine 0.9 mg/dL (0.7-1.2) 08/15/22 10:03 GFR Calculation 97.8 mL/min (90-130) 08/15/22 10:03 Glucose 95 mg/dL (65-115) 08/15/22 10:03 Calculated Osmolality 286 mOsm/kg (285-295) 08/15/22 10:03 Calcium 10.1 mg/dL (8.5-10.5) 08/15/22 10:03 Total Bilirubin 0.3 mg/dL (0.15-1.2) 08/15/22 10:03 AST 20 U/L (0-40) 08/15/22 10:03 ALT 23 U/L (0-41) 08/15/22 10:03 Alkaline Phosphatase 74 U/L (40-130) 08/15/22 10:03 Troponin T Baseline 6 ng/L (0-15) 08/15/22 10:03 Total Protein 8.5 g/dL (6.6-8.7) 08/15/22 10:03 Albumin 4.9 g/dL (3.5-5.2) 08/15/22 10:03 Globulin 3.6 g/dL (1.3-4.6) 08/15/22 10:03 EKG Data EKG 1: EKG interpretation date: 08/15/22 Interpretation: Normal sinus rhythm, no ST segment elevation or depression seen. 67 bpm. Discharge Plan Discharge Patient Disposition: Home Clinical Impression: Atypical chest pain Condition: Stable Prescriptions: No Action metoprolol tartrate 25 mg tablet 25 mg PO BID Qty: 180 3RF albuterol sulfate 90 mcg/actuation HFA aerosol inhaler 1 puff INHALATION Q6H PRN (Reason: Shortness Of Breath) losartan 100 mg tablet 50 mg PO BID Xarelto 20 mg tablet 20 mg PO QAM Discharge Orders: Discharge ED (Routine); Ordered 08/15/22 Ordered By: Kip Quinn Referrals: Humberto Foster FLOORWALKER [Primary Care Provider] - Discharge Diet: Regular Discharge Activity: Increase activity as tolerated Patient Instructions: Chest Pain (DC), Noncardiac Chest Pain (ED) Activity Restrictions/Additional Instructions: Follow-up with primary care provider in the next 5 to 7 days for reevaluation. Continue taking all home medications as previously prescribed. Return to the ER or your medical provider if condition worsens. Please read and understand discharge instructions. Thank you for choosing [facility] for your healthcare needs today. Please realize this is an emergency room and that we are providing you with a medical screening exam and this may not be complete and all inclusive of all the testing and or work up that you may need to determine your ailment or severity of your illness. It is very important that you follow up as instructed or that you return to the Emergency Department should you have concerns or if your condition changes or worsens in any way. Coding Level of Care Code ED Equipment Installation Professional for [employer] Exam Comprehensive Documented by User: Augusto Huertas DO 08/15/22 17:18 HPI - Chest Pain General: Chief Complaint: Chest Pain Stated Complaint: chest/arm pain Time Seen by Provider: 08/15/22 09:38 [facility] ED PFSH: Medical History Atrial fibrillation Chest pain Hypertension Tried lisinopril, but did not like the way it made him feel On anticoagulant therapy Surgical History Hx of oral surgery Hx of vasectomy Family History Grandfather Clotting disorder Lung disease Stroke Family/Other CAD (coronary artery disease) Cancer Father Diabetes Grandmother Lung disease Grandfather Lung disease Denies family history of Dementia Chronic kidney disease (CKD) Suicide Anesthesia complication Bleeding disorder Social History Smoking and tobacco status: former smoker Alcohol intake: current Course Vital Signs: Vital signs: Vital Signs Temperature 98 F 08/15/22 09:39 Pulse Rate 71 08/15/22 09:39 Respiratory Rate 18 08/15/22 09:39 Blood Pressure 137/94 08/15/22 09:39 Pulse Oximetry 98 08/15/22 09:39 Oxygen Delivery Me thod 08/15/22 09:39 MDM - Chest Pain Medical Decision Making Patient is a 32-year-old male who comes to the ED with chest pain. Patient has a history of A. fib and hypertension and had a cardiac stress test done 2 days ago. He was told to stop taking the metoprolol for the stress test. He states that during his stress test he started developing left-sided chest pain that radiates into left upper arm. He has continued to have it for the past 2 days. He started taking his metoprolol again yesterday. Here in the ED patient denies any current chest pains has not resolved before arriving to the ED. Vitals are stable exam of patient is benign. EKG showed normal sinus rhythm with no ST segment elevation or depression seen and a rate of 67 bpm. Chest x-ray showed no acute findings. Labs were unremarkable and troponin was negative. Patient was given a GI cocktail and stable for discharge home. He is diagnosed with atypical chest pain and told to follow-up with his PCP within the next week for reevaluation. Return ED precautions given. Patient understood agree with plan. Chart reviewed and patient discussed with midlevel. Agree with assessment and plan. Lab Data : 08/15/22 10:03 08/15/22 10:03 Radiology Impressions Chest X-Ray 08/15/22 09:43 IMPRESSION: Unremarkable chest radiograph. Laboratory Results WBC 8.9 10^3/uL (4.0-10.0) 08/15/22 10:03 RBC 5.24 10^6/uL (4.1-5.3) 08/15/22 10:03 Hgb 15.9 g/dL (11.7-16.6) 08/15/22 10:03 Hct 46.8 % (42.0-52.0) 08/15/22 10:03 MCV 89.3 fl (80-94) 08/15/22 10:03 MCH 30.3 pg (28.0-34.0) 08/15/22 10:03 MCHC 34.0 g/dL (30.0-36.0) 08/15/22 10:03 RDW 12.7 % (12.1-15.1) 08/15/22 10:03 Plt Count 442 10^3/cmm (130-400) H 08/15/22 10:03 MPV 10.5 fL (7.4-10.4) H 08/15/22 10:03 Neut % (Auto) 54.4 % 08/15/22 10:03 Lymph % (Auto) 32.1 % 08/15/22 10:03 [place] % (Auto) 7.8 % 08/15/22 10:03 Eos % (Auto) 3.7 % 08/15/22 10:03 Baso % (Auto) 0.8 % 08/15/22 10:03 Neut # (Auto) 4.84 10^3/uL (1.8-7.7) 08/15/22 10:03 Lymph # (Auto) 2.9 10^3/uL (0.8-4.8) 08/15/22 10:03 [place] # (Auto) 0.7 10^3/uL (0.2-0.9) 08/15/22 10:03 Eos # (Auto) 0.3 10^3/uL (0.0-0.8) 08/15/22 10:03 Baso # (Auto) 0.1 10^3/uL (0.0-0.1) 08/15/22 10:03 Nucleated RBC % (auto) 0 % 08/15/22 10:03 Nucleated RBCs # 0.0 /100WBC 08/15/22 10:03 Sodium 139 mmol/L (136-145) 08/15/22 10:03 Potassium 4.2 mmol/L (3.5-5.1) 08/15/22 10:03 Chloride 100 mmol/L (98-107) 08/15/22 10:03 Carbon Dioxide 26 mmol/L (22-29) 08/15/22 10:03 Anion Gap 17.2 (5-19) 08/15/22 10:03 BUN 9 mg/dL (6-20) 08/15/22 10:03 Creatinine 0.9 mg/dL (0.7-1.2) 08/15/22 10:03 GFR Calculation 97.8 mL/min (90-130) 08/15/22 10:03 Glucose 95 mg/dL (65-115) 08/15/22 10:03 Calculated Osmolality 286 mOsm/kg (285-295) 08/15/22 10:03 Calcium 10.1 mg/dL (8.5-10.5) 08/15/22 10:03 Total Bilirubin 0.3 mg/dL (0.15-1.2) 08/15/22 10:03 AST 20 U/L (0-40) 08/15/22 10:03 ALT 23 U/L (0-41) 08/15/22 10:03 Alkaline Phosphatase 74 U/L (40-130) 08/15/22 10:03 Troponin T Baseline 6 ng/L (0-15) 08/15/22 10:03 Total Protein 8.5 g/dL (6.6-8.7) 08/15/22 10:03 Albumin 4.9 g/dL (3.5-5.2) 08/15/22 10:03 Globulin 3.6 g/dL (1.3-4.6) 08/15/22 10:03 Discharge Plan Discharge Patient Disposition: Home Clinical Impression: Atypical chest pain Condition: Stable Prescriptions: No Action metoprolol tartrate 25 mg tablet 25 mg PO BID Qty: 180 3RF albuterol sulfate 90 mcg/actuation HFA aerosol inhaler 1 puff INHALATION Q6H PRN (Reason: Shortness Of Breath) losartan 100 mg tablet 50 mg PO BID Xarelto 20 mg tablet 20 mg PO QAM Discharge Orders: Discharge ED (Routine); Ordered 08/15/22 Ordered By: Kip Quinn Referrals: Humberto Foster FLOORWALKER [Primary Care Provider] - Discharge Diet: Regular Discharge Activity: Increase activity as tolerated Patient Instructions: Chest Pain (DC), Noncardiac Chest Pain (ED) Activity Restrictions/Additional Instructions: Follow-up with primary care provider in the next 5 to 7 days for reevaluation. Continue taking all home medications as previously prescribed. Return to the ER or your medical provider if condition worsens. Please read and understand disch arge instructions. Thank you for choosing [facility] for your healthcare needs today. Reinier truong realize this is an emergency room and that we are providing you with a medical screening exam and this may not be complete and all inclusive of all the testing and or work up that you may need to determine your ailment or severity of your illness. It is very important that you follow up as instructed or that you return to the Emergency Department should you have concerns or if your condition changes or worsens in any way. Coding Level of Care Code ED Equipment Installation Professional for Theron Kaplan Exam Comprehensive
--- NOTE | 2022-08-15 09:47 | ECG_ITS ---
[facility] Test Date: 2022-08-15 Pat Name: Yoan Carranza Department: Room: Gender: Male Child Nutrition Manager: : 1990 Requested By: Kip Quinn Order Number: [id number] Hernandez MD: Ranjit Cuenca M.D. Measurements Intervals [place] Rate: 67 P: 19 [place]: 169 QRS: 56 QRSD: 102 T: 42 QT: 368 QTc: 390 Interpretive Statements SINUS RHYTHM Compared to ECG 05/10/2022 00:04:21 T-wave abnormality no longer present Electronically Signed On 08-17-2022 6:28:37 LPN INSTRUCTOR by Ranjit Cuenca M.D. [id number]
--- NOTE | 2022-08-15 10:08 | PC.NURSE ---
pt placed on continuous nibp, spo2, and cm
[2022-08-15] MEDS: aspirin 81 mg Chew Tablet 324 MG PO (10:12)
[2022-08-15 10:15] LABS: Basophils # 0.1 10^3/uL (0.0-0.1); Basophils % 0.8 %; Eosinophils # 0.3 10^3/uL (0.0-0.8); Eosinophils % 3.7 %; Hematocrit 46.8 % (42.0-52.0); Hemoglobin 15.9 g/dL (11.7-16.6); Lymphocytes # 2.9 10^3/uL (0.8-4.8); Lymphocytes % 32.1 %; Mean Corpuscular Hemoglobin 30.3 pg (28.0-34.0); Mean Corpuscular Volume 89.3 fl (80-94); Mean Platelet Volume 10.5 fL (7.4-10.4); Monocytes # 0.7 10^3/uL (0.2-0.9); Monocytes % 7.8 %; Neutrophils # 4.84 10^3/uL (1.8-7.7); Neutrophils % 54.4 %; Nucleated Red Blood Cells % 0 %; Platelet Count 442 10^3/cmm (130-400); Red Blood Count 5.24 10^6/uL (4.1-5.3); Red Cell Distribution Width 12.7 % (12.1-15.1); White Blood Count 8.9 10^3/uL (4.0-10.0)
[2022-08-15 10:41] LABS: Troponin(5th) Baseline 6 ng/L (0-15)
[2022-08-15 10:42] LABS: Alanine Aminotransferase 23 U/L (0-41); Albumin Level 4.9 g/dL (3.5-5.2); Alkaline Phosphatase 74 U/L (40-130); Anion Gap 17.2 (5-19); Aspartate Amino Transferase 20 U/L (0-40); Blood Urea Nitrogen 9 mg/dL (6-20); Calcium 10.1 mg/dL (8.5-10.5); Carbon Dioxide 26 mmol/L (22-29); Chloride 100 mmol/L (98-107); Creatinine Clr Calc Pharmacy 129.7313; Globulin 3.6 g/dL (1.3-4.6); Glomerular Filtration Rate 97.8 mL/min (90-130); Glucose 95 mg/dL (65-115); Osmolality Calculated 286 mOsm/kg (285-295); Potassium 4.2 mmol/L (3.5-5.1); Sodium 139 mmol/L (136-145); Total Bilirubin 0.3 mg/dL (0.15-1.2); Total Protein 8.5 g/dL (6.6-8.7)
[2022-08-15] MEDS: lidocaine 2% viscous 15 ML, aluminum-mag hydrox-simethicon 30 ML, sucralfate oral liq 1 GM PO (11:04)
== END 2022-08-15 11:11 | disposition home or self-care (01) ==
PROVIDERS: Emergency Provider Physician Assistant; PCP Clinical Nurse Specialist Adult Health
DX: R07.89 Other chest pain (principal); I10 Essential (primary) hypertension; Z87.891 Personal history of nicotine dependence
CPT/HCPCS: 71045; 80053; 84484; 85025; 93005; 99285

== ENCOUNTER 2024-01-16 13:37 | Emergency (ER) | payer BC, SELFPAY ==
--- NOTE | 2024-01-16 13:38 | ECG_ITS ---
[facility] Test Date: 2024-01-16 Pat Name: Yoan Carranza Department: Room: Gender: Male Data Lead: : 1990 Requested By: Lavonne Isabel Order Number: [id number] David MD: Ranjit Cuenca M.D. Measurements Intervals [place] Rate: 72 P: 59 [place]: 201 QRS: 48 QRSD: 106 T: 22 QT: 365 QTc: 399 Interpretive Statements SINUS RHYTHM Compared to ECG 08/15/2022 09:47:05 No significant changes Electronically Signed On 01-16-2024 14:20:31 CDT by Ranjit Cuenca M.D. [id number]
[2024-01-16 13:39] VITALS: BP 150/102; PULSE 71; RESP 16; TEMP 36.5; O2SAT 100
[2024-01-16 14:28] LABS: Basophils % 0.6 %; Eosinophils # 0.2 10^3/uL (0.0-0.8); Eosinophils % 2.7 %; Hematocrit 44.4 % (37-53); Lymphocytes # 2.1 10^3/uL (0.8-4.8); Lymphocytes % 33.8 %; Mean Corpuscular HGB Conc 34.9 g/dL (30-55); Mean Corpuscular Hemoglobin 30.8 pg (27-33); Mean Corpuscular Volume 88.1 fl (82-101); Mean Platelet Volume 10.8 fL (7.4-10.4); Monocytes # 0.5 10^3/uL (0.2-0.9); Monocytes % 8.2 %; Neutrophils # 3.45 10^3/uL (1.8-7.7); Neutrophils % 54.4 %; Nucleated Red Blood Cells % 0 %; Platelet Count 320 10^3/cmm (157-399); Red Blood Count 5.04 10^6/uL (3.85-5.65); Red Cell Distribution Width 12.6 % (12.1-15.1); White Blood Count 6.34 10^3/uL (3.29-11.43)
--- NOTE | 2024-01-16 14:31 | ED_ITS ---
HPI - General Adult 2 General: Chief complaint: General Medical Stated complaint: numbness in hands, a fib Time Seen by Provider: 01/16/24 14:29 Source: patient Mode of arrival: ambulatory History of Present Illness: 33-year-old male presents to the emergen cy room with complaints of numbness and tingling bilaterally in the hands and feet. He has a history of atrial fibrillation no recent medication change. He is on Eliquis. He has some mid back pain no neck pain. No recent trauma or fall. He is on metoprolol 50 mg p.o. twice daily. Onset (ago): day(s) Relieving factors: none Exacerbating factors: none Associated symptoms: Deny chest pain, confusion, cough, diaphoresis, decreased appetite, dyspnea, fevers/chills, headache(s), malaise, nausea, rash, palpitations, seizures, short of breath, syncope, vomiting or weakness Treatments prior to arrival: none Review of Systems 2 Const: Denies: fever(s), chills, malaise or diaphoresis Card: Denies: chest pain, palpitations or syncope Resp: Denies: dyspnea GI: Denies: nausea or vomiting : Denies: dysuria, urinary frequency or urinary urgency Musc: Denies: neck pain or back pain Skin/Breast: Denies: rash Neuro: Reports: numbness in extremities and weakness in extremities; Denies: headache(s) or confusion PFSH ED 2 PFSH: Medical History On anticoagulant therapy Chest pain Atrial fibrillation Hypertension Tried lisinopril, but did not like the way it made him feel Surgical History Hx of oral surgery Hx of vasectomy Family History Grandfather Clotting disorder Lung disease Stroke Family/Other CAD (coronary artery disease) Cancer Father Diabetes Grandmother Lung disease Grandfather Lung disease Denies family history of Dementia Chronic kidney disease (CKD) Suicide Anesthesia complication Bleeding disorder Social History Smoking and tobacco/nicotine status: former use of tobacco/nicotine Alcohol intake: current Substance/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 Physical Exam 2 Const: GENERAL APPEARANCE: cooperative and comfortable O RIENTATION/CONSCIOUSNESS: Yes awake, Yes oriented to person, Yes oriented to place and Yes oriented to time HENMT: COMMON NORMALS: normocephalic, atraumatic and hearing grossly normal bilaterally HEAD & SCALP: normocephalic and atraumatic Resp: COMMON NORMALS: normal respiratory effort, No retractions, No use of accessory muscles and clear to auscultation bilaterally AUSCULTATION: clear to auscultation bilaterally Cardio: COMMON NORMALS: regular rate, regular rhythm and No murmurs present (Cardio) RATE: regular rate RHYTHM: regular rhythm GI: COMMON NORMALS: Soft to palpation and No hepatosplenomegaly present A USCULTATION: Yes normoactive bowel sounds PALPATION: Yes Soft to palpation, No Tenderness to palpation present (GI), No Guarding due to palpation present (GI) and Yes No hepatosplenomegaly present Extremity: COMMON NORMALS: normal to inspection, capillary refill normal, no clubbing, cyanosis or edema, no calf tenderness and no pedal edema Neuro: SENSORIUM/ORIENTATION: Yes oriented to person, Yes oriented to place and Yes oriented to time Skin: COMMON NORMALS: no rashes or lesions noted GENERAL SKIN EXAM: no rashes or lesions noted Course 2 Vital Signs: Vital signs: Vital Signs Temperature 97.7 F 01/16/24 13:39 Pulse Rate 71 01/16/24 13:39 Respiratory Rate 16 01/16/24 13:39 Blood Pressure 150/102 01/16/24 13:39 Pulse Oximetry 100 01/16/24 13:39 Oxygen Delivery Me thod Room Air 01/16/24 13:39 [facility] - General Adult Medical Decision Making Make his 2 separate issues here the numbness tingling extremities being the first. His symptoms resolved at this time he has no definitive findings on exam and CT of the neck and thoracic spine are negative. If this persist have him follow-up with primary care for consideration of MRI of these regions. Start steroid taper prescribed if he does not improve recheck with his primary care doctor. Secondarily the episode of bradycardia I suspect may be due to his medications his rate is controlled now we will discharge the patient home with a Holter monitor continue his current medications and follow-up with his information strategist after the Holter is completed return if he has further problems. Medical Records I reviewed the patient's medical records. Lab Data I reviewed the patient's lab results. 01/16/24 14:22 01/16/24 14:22 Radiology Impressions Cervical Spine CT 01/16/24 15:32 IMPRESSION: 1. No acute findings. 2. No significant degenerative disease. Thoracic Spine CT 01/16/24 15:32 IMPRESSION: 1. No acute findings. 2. No significant degenerative disease. Laboratory Results WBC 6.34 10^3/uL (3.29-11.43) 01/16/24 14:22 RBC 5.04 10^6/uL (3.85-5.65) 01/16/24 14:22 Hgb 15.50 g/dL (11.27-16.99) 01/16/24 14:22 Hct 44.4 % (37-53) 01/16/24 14:22 MCV 88.1 fl (82-101) 01/16/24 14:22 MCH 30.8 pg (27-33) 01/16/24 14:22 MCHC 34.9 g/dL (30-55) 01/16/24 14:22 RDW 12.6 % (12.1-15.1) 01/16/24 14:22 Plt Count 320 10^3/cmm (157-399) 01/16/24 14:22 MPV 10.8 fL (7.4-10.4) H 01/16/24 14:22 Neut % (Auto) 54.4 % 01/16/24 14:22 Lymph % (Auto) 33.8 % 01/16/24 14:22 [place] % (Auto) 8.2 % 01/16/24 14:22 Eos % (Auto) 2.7 % 01/16/24 14:22 Baso % (Auto) 0.6 % 01/16/24 14:22 Neut # (Auto) 3.45 10^3/uL (1.8-7.7) 01/16/24 14:22 Lymph # (Auto) 2.1 10^3/uL (0.8-4.8) 01/16/24 14:22 [place] # (Auto) 0.5 10^3/uL (0.2-0.9) 01/16/24 14:22 Eos # (Auto) 0.2 10^3/uL (0.0-0.8) 01/16/24 14:22 Baso # (Auto) 0.0 10^3/uL (0.0-0.1) 01/16/24 14:22 Nucleated RBC % (auto) 0 % 01/16/24 14:22 Nucleated RBCs # 0.0 /100WBC 01/16/24 14:22 Sodium 141 mmol/L (136-145) 01/16/24 14:22 Potassium 3.8 mmol/L (3.5-5.1) 01/16/24 14:22 Chloride 104 mmol/L (98-107) 01/16/24 14:22 Carbon Dioxide 27 mmol/L (22-29) 01/16/24 14:22 Anion Gap 13.8 (5-19) 01/16/24 14:22 BUN 11 mg/dL (6-20) 01/16/24 14:22 Creatinine 1.0 mg/dL (0.7-1.2) 01/16/24 14:22 GFR Calculation 86.1 mL/min (90-130) L 01/16/24 14:22 Glucose 96 mg/dL (65-115) 01/16/24 14:22 Calculated Osmolality 291 mOsm/kg (285-295) 01/16/24 14:22 Calcium 9.6 mg/dL (8.5-10.5) 01/16/24 14:22 Total Bilirubin 0.4 mg/dL (0.15-1.2) 01/16/24 14:22 AST 20 U/L (0-40) 01/16/24 14:22 ALT 28 U/L (0-41) 01/16/24 14:22 Alkaline Phosphatase 64 U/L (40-130) 01/16/24 14:22 Total Protein 8.2 g/dL (6.6-8.7) 01/16/24 14:22 Albumin 4.9 g/dL (3.5-5.2) 01/16/24 14:22 Globulin 3.3 g/dL (1.3-4.6) 01/16/24 14:22 All radiology interpretation(s) finalized by discharge Discharge Plan Discharge Patient Disposition: Home Clinical Impression: Atrial fibrillation, Extremity numbness Condition: Stable Prescriptions: New prednisone 20 mg tablet 20 mg PO TID Qty: 15 0RF Rx Instructions: 1 p.o. 3 times daily x3 days, 1 p.o. twice daily x2 days, 1 p.o. daily x2 days No Action losartan 100 mg tablet 50 mg PO BID Qty: 90 1RF albuterol sulfate 90 mcg/actuation HFA aerosol inhaler 1 puff INHALATION Q6H PRN (Reason: Shortness Of Breath) metoprolol tartrate 25 mg tablet 50 mg PO BID Discharge Orders: Discharge ED (Routine); Ordered 01/16/24 Ordered By: Augusto Huertas Referrals: Danis Garcia MD [Primary Care Provider] - Discharge Diet: Usual diet Discharge Activity: Increase activity as tolerated Patient Instructions: Opioid Safety, Pain Management Activity Restrictions/Additional Instructions: Thank you for choosing [facility] for your healthcare needs today. Please realize this is an emergency room and that we are providing you with a medical screening exam and this may not be complete and all inclusive of all the testing and or work up that you may need to determine your ailment or severity of your illness. It is very important that you follow up as instructed or that you return to the Emergency Department should you have concerns or if your condition changes or worsens in any way. You were seen today with complaints of an episode of bradycardia (slow heart rate) as well as numbness in your extremities CT th thoracic cervical spines did not show any significant abnormalities. Will start on a prednisone taper. Set you up for follow-up with neurology regarding the numbness in your extremities (hands and feet). For your atrial fibrillation and the episode of bradycardia this may be a side effect of the medication you take metoprolol. Will set you up for 48-hour Holter monitor follow-up with your primary care doctor or your information strategist. Coding Level of Care Code ED Mobile Sales Expert for Theron Kaplan
[2024-01-16 14:44] LABS: Alanine Aminotransferase 28 U/L (0-41); Albumin Level 4.9 g/dL (3.5-5.2); Alkaline Phosphatase 64 U/L (40-130); Anion Gap 13.8 (5-19); Aspartate Amino Transferase 20 U/L (0-40); Blood Urea Nitrogen 11 mg/dL (6-20); Calcium 9.6 mg/dL (8.5-10.5); Carbon Dioxide 27 mmol/L (22-29); Chloride 104 mmol/L (98-107); Creatinine Clr Calc Pharmacy 117.8338; Globulin 3.3 g/dL (1.3-4.6); Glomerular Filtration Rate 86.1 mL/min (90-130); Glucose 96 mg/dL (65-115); Osmolality Calculated 291 mOsm/kg (285-295); Potassium 3.8 mmol/L (3.5-5.1); Sodium 141 mmol/L (136-145); Total Bilirubin 0.4 mg/dL (0.15-1.2); Total Protein 8.2 g/dL (6.6-8.7)
--- NOTE | 2024-01-16 15:32 | CTR_ITS ---
PROCEDURE INFORMATION: Exam: CT Thoracic Spine Without Contrast Exam date and time: 01/16/2024 3:41 PM Age: 33 years old Clinical indication: Other: Radiculopathy; Additional info: Back pain TECHNIQUE: Imaging protocol: Computed tomography of the thoracic spine without contrast. Radiation optimization: All CT scans at this facility use at least one of these dose optimization techniques: automated exposure control; mA and/or kV adjustment per patient size (includes targeted exams where dose is matched to clinical indication); or iterative reconstruction. COMPARISON: CT cervical spin wo con* [id number] 01/16/2024 3:38 PM RADIATION DOSE METRICS: Total DLP (mGy-cm): 580.09 FINDINGS: Bones/joints: Spinal alignment is normal. Vertebral body height is maintained. Intervertebral disc height is maintained. Facet joints are normal. No acute fracture. No spinal canal stenosis. Visible portions of the ribs are intact. Soft tissues: Paraspinal soft tissues are unremarkable. Visible intra-abdominal soft tissues are unremarkable. Lungs: Visible portions of the lungs are unremarkable. Other findings: . The visible portion of the mediastinum is unremarkable. CT/CT thoracic spin wo con* [id number] IMPRESSION: 1. No acute findings. 2. No significant degenerative disease.
--- NOTE | 2024-01-16 15:32 | CTR_ITS ---
PROCEDURE INFORMATION: Exam: CT Cervical Spine Without Contrast Exam date and time: 01/16/2024 3:38 PM Age: 33 years old Clinical indication: Radiculopathy; Cervicothoracic region; Additional info: Arm radiculopathy TECHNIQUE: Imaging protocol: Computed tomography of the cervical spine without contrast. Radiation optimization: All CT scans at this facility use at least one of these dose optimization techniques: automated exposure control; mA and/or kV adjustment per patient size (includes targeted exams where dose is matched to clinical indication); or iterative reconstruction. COMPARISON: CR XR chest 1V portable [id number] 08/15/2022 11:33 AM RADIATION DOSE METRICS: Total DLP (mGy-cm): 245.07 FINDINGS: Bones/joints: Spinal alignment is normal. Vertebral body height is maintained. Intervertebral disc height is maintained. Facet joints are unremarkable. No acute fracture. No spinal canal stenosis. No osseous neural foraminal stenosis. Lungs: Lung apices are clear. Soft tissues: Soft tissues in the neck and thoracic inlet are unremarkable. CT/CT cervical spin wo con* [id number] IMPRESSION: 1. No acute findings. 2. No significant degenerative disease.
--- NOTE | 2024-01-16 22:39 | DCPLANNER ---
Message sent to Cardiology for a follow up - 48 hr holtor monitor
== END 2024-01-16 16:45 | disposition home or self-care (01) ==
PROVIDERS: Emergency Medicine; Emergency Provider Family Medicine; PCP Family Medicine
DX: I48.91 Unspecified atrial fibrillation (principal); R20.0 Anesthesia of skin; Z87.891 Personal history of nicotine dependence; I10 Essential (primary) hypertension
CPT/HCPCS: 36415; 72125; 72128; 80053; 85025; 93005; 99284

== ENCOUNTER 2024-01-20 14:51 | Emergency (ER) | payer BC, SELFPAY ==
[2024-01-20] VITALS (8 sets, daily range): BP systolic 128–166; BP diastolic 86–101; PULSE 56–74; RESP 18; TEMP 36.7; O2SAT 93–100
--- NOTE | 2024-01-20 14:52 | ECG_ITS ---
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 Measurements Intervals [place] Rate: 66 P: 62 [place]: 165 QRS: 65 QRSD: 102 T: 26 QT: 361 QTc: 381 Interpretive Statements SINUS RHYTHM WITH MARKED SINUS ARRHYTHMIA Compared to ECG 01/16/2024 13:42:20 No significant changes Electronically Signed On 01-21-2024 21:42:59 CDT by Fermin Rodriguez M.D. [id number]
--- NOTE | 2024-01-20 14:52 | ECG_ITS ---
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 Measurements Intervals [place] Rate: 66 P: 62 [place]: 165 QRS: 65 QRSD: 102 T: 26 QT: 361 QTc: 381 Interpretive Statements SINUS RHYTHM WITH MARKED SINUS ARRHYTHMIA Compared to ECG 01/16/2024 13:42:20 No significant changes Electronically Signed On 01-20-2024 15:05:20 CDT by Mik Betancur M.D. [id number]
--- NOTE | 2024-01-20 14:57 | XRR_ITS ---
PROCEDURE INFORMATION: Exam: XR Chest Exam date and time: 01/20/2024 3:12 PM Age: 33 years old Clinical indication: Pain; Angina pectoris; Additional info: Chest pain TECHNIQUE: Imaging protocol: Radiologic exam of the chest. Views: 1 view. COMPARISON: CR XR chest 1V portable [id number] 08/15/2022 11:33 AM FINDINGS: Lungs: Unremarkable. No consolidation. Pleural spaces: Unremarkable. No pleural effusion. No pneumothorax. Heart/Mediastinum: Unremarkable. No cardiomegaly. Bones/joints: Unremarkable. XR/XR chest 1V portable [id number] IMPRESSION: No acute findings.
[2024-01-20 15:36] LABS: Amphetamines Screen Urine Negative (Negative); Barbiturates Screen Urine Negative (Negative); Benzodiazepines Screen Urine Negative (Negative); Cocaine Screen Urine Negative (Negative); Opiate Screen Urine Negative (Negative); PCP Screen Urine Negative (Negative); THC Screen Urine Positive (Negative)
[2024-01-20 15:53] LABS: Bacteria Urine TRACE /hpf; Bilirubin Urine Neg (Negative); Blood Urine Neg (Negative); Glucose Urine UA Trace (Normal); Ketones Urine Negative (Negative); Leukocyte Esterase Urine Negative (Negative); Nitrate Urine Negative (Negative); Protein Urine Neg (Negative); Sulfosalicylic Acid Urine Negative (Negative); Urine Appearance Clear (CLEAR); Urine Color Light yellow (Yellow); Urobilinogen Urine Norm (Negative); WBC Urine 0-4 /hpf (0-5); pH Urine 8 (5-7)
[2024-01-20 15:54] LABS: Add Urine Culture? No
--- NOTE | 2024-01-20 15:59 | ED_ITS ---
HPI - General Adult 2 General: Chief complaint: General Medical Stated complaint: numbnessin Fingers Time Seen by Provider: 01/20/24 14:54 History of Present Illness: 33-year-old man who presents to the [facility] room with palpitations and slow heart rate. He also says he has had numbness and tingling in his arm. No cough. No fevers. Has had some chest tightness. No abdominal pain. No nausea or vomiting. He says he has a history of A-fib and hypertension. Review of Systems 2 Narrative: Constitutional symptoms: Negative except as documented in HPI. Skin symptoms: Negative except as documented in HPI. Eye symptoms: Negative except as documented in HPI. ENMT symptoms: Negative except as documented in HPI. Respiratory symptoms: Negative except as documented in HPI. Cardiovascular symptoms: Negative except as documented in HPI. Gastrointestinal symptoms: Negative except as documented in HPI. Genitourinary symptoms: Negative except as documented in HPI. Musculoskeletal symptoms: Negative except as documented in HPI. Neurologic symptoms: Negative except as documented in HPI. Psychiatric symptoms: Negative except as documented in HPI. Endocrine symptoms: Negative except as documented in HPI. PFSH ED 2 PFSH: Medical History On anticoagulant therapy Chest pain Atrial fibrillation Hypertension Tried lisinopril, but did not like the way it made him feel Surgical History Hx of oral surgery Hx of vasectomy Family History Grandfather Clotting disorder Lung disease Stroke Family/Other CAD (coronary artery disease) Cancer Father Diabetes Grandmother Lung disease Grandfather Lung disease Denies family history of Dementia Chronic kidney disease (CKD) Suicide Anesthesia complication Bleeding disorder Social History Smoking and tobacco/nicotine status: former use of tobacco/nicotine Alcohol intake: current Substance/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 Skin: Warm, dry. Head: Normocephalic, atraumatic. Neck: Supple, trachea midline. Eye: Extraocular movements are intact. Ears, nose, mouth and throat: mucosa moist. Cardiovascular: Regular, Normal peripheral perfusion. Respiratory: Lungs are clear to auscultation, respirations are non-labored, breath sounds are equal, Symmetrical chest wall expansion. Gastrointestinal: Soft, Nontender, Non distended, Normal bowel sounds. Musculoskeletal: Normal ROM, no deformity. Neurological: Alert and oriented, No focal neurological deficit observed. Psychiatric: Cooperative, appropriate mood & affect. Course 2 Vital Signs: Vital signs: Vital Signs Temperature 98.1 F 01/20/24 14:53 Pulse Rate 56 L 01/20/24 17:00 Respiratory Rate 18 01/20/24 15:08 Blood Pressure 132/86 01/20/24 17:00 Pulse Oximetry 94 01/20/24 17:00 Oxygen Delivery Me thod Room Air 01/20/24 17:00 MDM - General Adult Medical Decision Making Medical decision making: Differential diagnosis including but not limited to and based on the above HPI, review of systems and physical exam: for patient with palpitations: atrial fibrillation with rapid ventricular response. ventricular tachycardia. sinus tachycardia. PVCs. also concern for underlying issues causing tachycardia. Infection, electrolyte abnormalities and thyroid issues Orders placed to evaluate differential diagnosis based on the above differential, HPI and physical exam Lab Review: Laboratory results were reviewed and interpreted by myself the emergency room physician. Lab work is unremarkable. White count is 11.5. BUN and creatinine are 16 and 1. Troponin is negative. EKG: Time 1452 rate 66. Normal sinus rhythm with sinus arrhythmia/pulmonary pattern, No ST-T changes, no ectopy, normal [place] & QRS intervals, This was reviewed and interpreted by myself the ER physician at 1455 Chest x-ray: No acute process. No infiltrate. No pneumothorax. No cardiomegaly. This was reviewed and interpreted by myself the ER physician. I reviewed the patient's medical record. Reexamination: I spoke at length with the patient about his issues with his blood pressure and his heart rate. He will follow with his doctor and may consider decreasing his beta-hamida. And may be adding in a different medication if he continues to have high blood pressure and low heart rate. No increased work of breathing. No altered mental status. Lab Data 01/20/24 16:20 01/20/24 16:20 Radiology Impressions Chest X-Ray 01/20/24 14:57 IMPRESSION: No acute findings. Laboratory Results WBC 11.51 10^3/uL (3.29-11.43) H 01/20/24 16:20 RBC 4.72 10^6/uL (3.85-5.65) 01/20/24 16:20 Hgb 14.30 g/dL (11.27-16.99) 01/20/24 16:20 Hct 42.1 % (37-53) 01/20/24 16:20 MCV 89.2 fl (82-101) 01/20/24 16:20 MCH 30.3 pg (27-33) 01/20/24 16:20 MCHC 34.0 g/dL (30-55) 01/20/24 16:20 RDW 12.5 % (12.1-15.1) 01/20/24 16:20 Plt Count 341 10^3/cmm (157-399) 01/20/24 16:20 MPV 11.4 fL (7.4-10.4) H 01/20/24 16:20 Neut % (Auto) 75.8 % 01/20/24 16:20 Lymph % (Auto) 12.5 % 01/20/24 16:20 [place] % (Auto) 9.1 % 01/20/24 16:20 Eos % (Auto) 0.1 % 01/20/24 16:20 Baso % (Auto) 0.2 % 01/20/24 16:20 Neut # (Auto) 8.73 10^3/uL (1.8-7.7) H 01/20/24 16:20 Lymph # (Auto) 1.4 10^3/uL (0.8-4.8) 01/20/24 16:20 [place] # (Auto) 1.1 10^3/uL (0.2-0.9) H 01/20/24 16:20 Eos # (Auto) 0.0 10^3/uL (0.0-0.8) 01/20/24 16:20 Baso # (Auto) 0.0 10^3/uL (0.0-0.1) 01/20/24 16:20 Nucleated RBC % (auto) 0 % 01/20/24 16:20 Nucleated RBCs # 0.0 /100WBC 01/20/24 16:20 Specimen Type Arterial 01/20/24 16:34 Sample Site Brachial, right 01/20/24 16:34 ABG pH 7.46 (7.35-7.45) H 01/20/24 16:34 ABG pCO2 35.3 mmHg (35-45) 01/20/24 16:34 ABG pO2 94.9 mmHg (80.0-100.0) 01/20/24 16:34 ABG HCO3 25.0 mmol/L (22-26) 01/20/24 16:34 ABG O2 Saturation 99.0 01/20/24 16:34 ABG Base Excess 1.6 mmol/L (-2.0-2.0) 01/20/24 16:34 Cb Test N/a 01/20/24 16:34 A-a O2 Gradient 1.3 mmHg (5-10) L 01/20/24 16:34 Hematocrit 45.7 % (42-52) 01/20/24 16:34 Hgb O2 Saturation 97.3 % (95-100) 01/20/24 16:34 Carboxyhemoglobin 1.0 %THgb (0.4-20.1) 01/20/24 16:34 Methemoglobin 0.7 % (0.4-1.5) 01/20/24 16:34 Total Hemoglobin 14.9 g/dL (14-18) 01/20/24 16:34 Sodium 143.0 mmol/L (131-143) 01/20/24 16:34 Potassium 4.2 mmol/L (3.5-5.0) 01/20/24 16:34 Glucose 124.0 mg/dL (70-115) H 01/20/24 16:34 Ionized Calcium 1.2 mmol/L (1.1-1.4) 01/20/24 16:34 O2 Delivery Device Room air 01/20/24 16:34 Computational Geneticist ID Gd 01/20/24 16:34 Sodium 140 mmol/L (136-145) 01/20/24 16:20 Potassium 4.5 mmol/L (3.5-5.1) 01/20/24 16:20 Chloride 105 mmol/L (98-107) 01/20/24 16:20 Carbon Dioxide 26 mmol/L (22-29) 01/20/24 16:20 Anion Gap 13.5 (5-19) 01/20/24 16:20 BUN 16 mg/dL (6-20) 01/20/24 16:20 Creatinine 1.0 mg/dL (0.7-1.2) 01/20/24 16:20 GFR Calculation 86.1 mL/min (90-130) L 01/20/24 16:20 Glucose 128 mg/dL (65-115) H 01/20/24 16:20 Calculated Osmolality 293 mOsm/kg (285-295) 01/20/24 16:20 Calcium 9.3 mg/dL (8.5-10.5) 01/20/24 16:20 Total Bilirubin 0.2 mg/dL (0.15-1.2) 01/20/24 16:20 AST 18 U/L (0-40) 01/20/24 16:20 ALT 33 U/L (0-41) 01/20/24 16:20 Alkaline Phosphatase 61 U/L (40-130) 01/20/24 16:20 Troponin T Baseline < 6 ng/L (0-15) 01/20/24 16:20 Total Protein 7.3 g/dL (6.6-8.7) 01/20/24 16:20 Albumin 4.7 g/dL (3.5-5.2) 01/20/24 16:20 Globulin 2.6 g/dL (1.3-4.6) 01/20/24 16:20 Urine Color Light yellow (Yellow) 01/20/24 15:20 Urine Appearance Clear (CLEAR) 01/20/24 15:20 Urine pH 8 (5-7) H 01/20/24 15:20 Ur Specific [place] 1.010 (1.005-1.030) 01/20/24 15:20 Urine Protein Neg (Negative) 01/20/24 15:20 Urine Glucose (UA) Trace (Normal) H 01/20/24 15:20 Urine Ketones Negative (Negative) 01/20/24 15:20 Urine Blood Neg (Negative) 01/20/24 15:20 Urine Nitrate Negative (Negative) 01/20/24 15:20 Urine Bilirubin Neg (Negative) 01/20/24 15:20 Prot Sulfosalicylic Acd Negative (Negative) 01/20/24 15:20 Urine Urobilinogen Norm mg/dL (Negative) 01/20/24 15:20 Ur Leukocyte Esterase Negative (Negative) 01/20/24 15:20 Urine RBC None /hpf (0-2) 01/20/24 15:20 Urine WBC 0-4 /hpf (0-5) H 01/20/24 15:20 Ur Squamous Epith Cells None /hpf (0-5) 01/20/24 15:20 Amorphous Sediment Not Reportable 01/20/24 15:20 Urine Bacteria Trace /hpf (NONE) 01/20/24 15:20 Urine Opiates Screen Negative ng/mL (Negative) 01/20/24 15:20 Ur Barbiturates Screen Negative ng/mL (Negative) 01/20/24 15:20 Ur Phencyclidine Scrn Negative ng/mL (Negative) 01/20/24 15:20 Ur Amphetamines Screen Negative ng/mL (Negative) 01/20/24 15:20 U Benzodiazepines Scrn Negative ng/mL (Negative) 01/20/24 15:20 Urine Cocaine Screen Negative ng/mL (Negative) 01/20/24 15:20 U Marijuana (THC) Screen Positive ng/mL (Negative) H 01/20/24 15:20 All radiology interpretation(s) finalized by discharge Other Data Assessment and plan: Chest pain Hypertension Bradycardia - Discharged home - Discussed findings and plan with patient. Answered any questions. - All laboratory values were reviewed and interpreted personally by myself, the ER physician - All imaging was reviewed and interpreted personally by myself, the ER physician. - Evaluation and treatment of this problem were appropriate in the emergency setting Discharge Plan Discharge Patient Disposition: Home Clinical Impression: Hypertension, Chest pain Condition: Stable Prescriptions: No Action losartan 100 mg tablet 50 mg PO BID Qty: 90 1RF albuterol sulfate 90 mcg/actuation HFA aerosol inhaler 1 puff INHALATION Q6H PRN (Reason: Shortness Of Breath) metoprolol tartrate 25 mg tablet 50 mg PO BID prednisone 20 mg tablet 20 mg PO TID Qty: 15 0RF Rx Instructions: 1 p.o. 3 times daily x3 days, 1 p.o. twice daily x2 days, 1 p.o. daily x2 days Discharge Orders: Discharge ED (Routine); Ordered 01/20/24 Ordered By: Codie Call Referrals: Danis Garcia MD [Primary Care Provider] - (You have been screened and evaluated and felt safe for discharge. Health conditions do change or evolve sometimes and as such it is important that you follow up with your Primary Doctor to be re checked, 3-5 days is a general good time frame for follow up. You are always welcome to return to the ED for re assessment if your symptoms are worsening or you have new concerns) Discharge Diet: Usual diet Discharge Activity: Resume usual activity Patient Instructions: Opioid Safety, Pain Management Coding Level of Care Code ED Nutrition Helper for Theron Kaplan
[2024-01-20 16:33] LABS: ABG PCO2 35.3 mmHg (35-45); ABG PH Result 7.46 (7.35-7.45); Alveolar-Arterial Oxygen Gradi 1.3 mmHg (5-10); Arterial Blood Gas Hematocrit 45.7 % (42-52); Base Excess ABG 1.6 mmol/L (-2.0-2.0); Blood Gas Operator Identificat GD; Blood Gas Sample Site Brachial, right; Blood Gas Sample Type Arterial; HGB O2 Sat 97.3 % (95-100); Ionized Calcium Level - ABG 1.2 mmol/L (1.1-1.4); Methemoglobin 0.7 % (0.4-1.5); Oxygen Device ROOM AIR; PO2 ABG 94.9 mmHg (80.0-100.0); Potassium Level - ABG 4.2 mmol/L (3.5-5.0); Total Hemoglobin 14.9 g/dL (14-18)
[2024-01-20 16:39] LABS: Basophils % 0.2 %; Eosinophils % 0.1 %; Hematocrit 42.1 % (37-53); Lymphocytes # 1.4 10^3/uL (0.8-4.8); Lymphocytes % 12.5 %; Mean Corpuscular Hemoglobin 30.3 pg (27-33); Mean Corpuscular Volume 89.2 fl (82-101); Mean Platelet Volume 11.4 fL (7.4-10.4); Monocytes # 1.1 10^3/uL (0.2-0.9); Monocytes % 9.1 %; Neutrophils # 8.73 10^3/uL (1.8-7.7); Neutrophils % 75.8 %; Nucleated Red Blood Cells % 0 %; Platelet Count 341 10^3/cmm (157-399); Red Blood Count 4.72 10^6/uL (3.85-5.65); Red Cell Distribution Width 12.5 % (12.1-15.1); White Blood Count 11.51 10^3/uL (3.29-11.43)
[2024-01-20 16:59] LABS: Troponin(5th) Baseline < 6 ng/L (0-15)
[2024-01-20 17:01] LABS: Alanine Aminotransferase 33 U/L (0-41); Albumin Level 4.7 g/dL (3.5-5.2); Alkaline Phosphatase 61 U/L (40-130); Anion Gap 13.5 (5-19); Aspartate Amino Transferase 18 U/L (0-40); Blood Urea Nitrogen 16 mg/dL (6-20); Calcium 9.3 mg/dL (8.5-10.5); Carbon Dioxide 26 mmol/L (22-29); Chloride 105 mmol/L (98-107); Globulin 2.6 g/dL (1.3-4.6); Glomerular Filtration Rate 86.1 mL/min (90-130); Glucose 128 mg/dL (65-115); Osmolality Calculated 293 mOsm/kg (285-295); Potassium 4.5 mmol/L (3.5-5.1); Sodium 140 mmol/L (136-145); Total Bilirubin 0.2 mg/dL (0.15-1.2); Total Protein 7.3 g/dL (6.6-8.7)
== END 2024-01-20 17:49 | disposition home or self-care (01) ==
PROVIDERS: Emergency Provider Emergency Medicine; PCP Family Medicine
DX: I10 Essential (primary) hypertension (principal); R07.9 Chest pain, unspecified; Z87.891 Personal history of nicotine dependence
CPT/HCPCS: 36415; 71045; 80051; 80053; 80306; 81001; 82330; 82805; 84484; 85025; 93005; 99285

== ENCOUNTER 2025-04-23 12:10 | Emergency (ER) | payer BC, SELFPAY ==
--- NOTE | 2025-04-23 12:14 | ECG_ITS ---
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
--- OUTSIDE RECORDS SUMMARY | 2025-04-23 12:15 | XMS_ITS | Data Portability ---
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 Will start with lab work. Patient also needs to have an event monitor given his fluctuating cardiac heart rate. Will include a tickborne panel given tick exposure. Patient was encouraged to do home stretches and exercises and discussed restrictions for his low back pain. Follow-up pending test results [email or web address] Not available 01/20/2024 17:16:57 Plan of Treatment Reminders Order Date Submit Date Provider Last Modified By Organization Details Last Modified Time Details Appointments None recorded. Lab vitamin B12 + folate, serum or blood 2023 [employer] [facility], [address] [place] [address] [place] [address], d[address] Jaquan C, [place], [address], 4 07:42:27 vitamin D, 25-hydroxy, total, serum 2023 024 [employer] [facility], [address] [place] [address] 248, [address] Jaquan C, [place], [place]ELA, [address], 4 07:42:28 vitamin B1 (thiamine), blood 2023 024 [employer] [facility], [address], [address] Jaquan C, [place], [address], 4 07:42:29 (antinuclea r antibodies) screen, serum 2023 024 [facility], [address], [address] Jaquan C, [place], [address], 4 07:53:20 tick-borne disease panel 2023 024 [facility], [address], [address] Jaquan C, [place], [address], 4 07:53:20 TSH, serum or plasma 2023 024 [facility] ([facility]), [address] [place], [address], 4 11:18:21 Referral rheumatolog ist referral [email or web address] [facility] (Rheumatology ), [facility], [address], [address], 4 11:48:12 Procedures None recorded. Surgeries None recorded. Imaging event monitor [address] (Scheduling Orders), [address] [place], [address], 4 09:11:36 Medication Orders None recorded. Patient TargetsNo targets recorded. 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 A posit shari IFA resul t is sugge stive of autoi mmune disea se and refle xes to titer , angela palacios and the 3 tiere d Multi plex 11 Antib porfirio [place]. Testi ng in the [place] stops at the first posit shari resul t, and does not precl ude addit ional posit shari resul ts. Fur er labor atory testi ng may be consi dered if clini bailey indic ated. For addit ional infor santo vega e refer to http: //[facility] tim burnett.Que stDia gnost ics.c om/fa q/FAQ 177 (This link is being provi ded for infor kalyn dorantes/ educa virgilio l purpo ses only. ) Not Available [facility] [address] [address] [place], [address], 01/25/2024 00:55:50 01/20/20 24 01/24/2024 ,I FA, CASCA DE AND RHEUM ATOID ARTHR ITIS PANEL 2, WITH REFLE XES rheumatoid factor <10 IU/mL <14 normal Not Available [facility] [address] [address] [place], [address], 01/25/2024 00:55:50 01/20/20 24 01/24/2024 ,I FA, CASCA DE AND RHEUM ATOID ARTHR ITIS PANEL 2, WITH REFLE XES cyclic citrullinate d peptide (ccp) Ab (IgG) <16 units normal Refer ence Range Negat shari: <20 Weak Posit shari: 20-39 Moder ate Posit shari: 40-59 Stron g Posit shari: >59 Not Available [facility] [address] [address] [place], [address], 01/25/2024 00:55:50 01/20/20 24 01/24/2024 ,I FA, CASCA DE AND RHEUM ATOID ARTHR ITIS PANEL 2, WITH REFLE XES mutated citrullinate d vimentin (MCV) Ab <20 U/mL <20 Anti- mutat ed citru llina maria d vimen tin antib porfirio may be used as a secon d-aranza e marke r of rheum atoid arthr itis, in addit ion to rheum atoid facto r and anti- cycli c citru llina maria d pepti de (CCP) . Not Available [address], [address], 01/25/2024 00:55:50 01/20/20 24 2024 F. TULAR ENSIS AB, IGM/I GG CHERELLE , S F. tularensis Ab, IgM cherelle, S Negati ve negati ve Not Available [address] [place], [address], 2024 16:30:52 01/20/20 24 2024 F. TULAR ENSIS AB, IGM/I GG CHERELLE , S F. tularensis Ab, IgG cherelle, S Negati ve negati ve Not Available [address] [address] [place], [address], 2024 16:30:52 01/20/20 24 2024 F. TULAR ENSIS AB, IGM/I GG CHERELLE , S F. tularensis interpretati on No antib odies to Franc isbill a tular ensis detec maria d. Antib porfirio respo nse may be negat shari in sampl es colle cted too soon follo wing infec tion/ expos ure. Repea t testi ng on a new sampl e in 1-2 weeks if clini bailey indic ated. Not Available [facility] [address] [address] [place], [address], 2024 16:30:52 01/20/20 24 01/21/2024 LYME DISEA SE AB W/REF L TO BLOT (IGG, IGM) lyme Ab screen <0.90 index normal Index Inter preta tion ----- ----- ----- ---- < 0.90 Negat shari 0.90- 1.09 Equiv ocal > 1.09 Posit shari As recom marianne d by the Food and Drug Admin istra tion (FDA) , all sampl es with posit shari or equiv ocal resul ts in a Borre augustine burgd orfer i antib porfirio scree n will be teste d using a blot metho d. Posit shari or equiv ocal scree nanci test resul ts shoul d not be inter prete d as truly posit shari until verif ied as such using a suppl ement al assay (e.g. , B. burgd orfer i blot) . The scree nanci test and/o r blot for B. burgd orfer i antib odies may be false ly negat shari in early stage s of Lyme disea se, inclu ding the perio d when eryth liv migra ns is appar ent. Not Available Access Network [facility] [address] [place], [address], 01/21/2024 15:05:32 01/20/20 24 01/21/2024 VITAM IN B12/F OLATE , SERUM PANEL vitamin B12 320 pg/mL 200-11 00 normal Pleas e Note: Altho ugh the refer ence range for vitam in B12 is 200-1 100 pg/mL , it has been repor maria d that betwe en 5 and 10% of patie nts with value s betwe en 200 and 400 pg/mL may exper ience neuro psych iatri c and hemat ologi c abnor malit ies due to occul t B12 defic iency ; less than 1% of patie nts with value s above 400 pg/mL will have sympt oms. Not Available [facility] [address] [place], [address], 01/21/2024 07:42:27 01/20/20 24 01/21/2024 VITAM IN B12/F OLATE , SERUM PANEL folate, serum 8.7 NG/mL normal Refer ence Range Low: <3.4 Borde rline : 3.4-5 .4 Grace l: >5.4 Not Available [facility] [address] [address] [place], [address], 01/21/2024 07:42:27 01/20/20 24 01/21/2024 VITAM IN D,25- OH,TO ROBYN,I A vitamin D,25-oh,tota l,ia 23 NG/mL 30-100 low Vitam in D Statu s 25-OH Vitam in D: Defic iency : <20 ng/mL Insuf ficie ncy: 20 - 29 ng/mL Optim al: > or = 30 ng/mL For 25-OH Vitam in D testi ng on patie nts on D2-osman pplem entat ion and patie nts for whom quant itati on of D2 and D3 fract ions is requi red, the [facility](TM ) 25-OH VIT D, (D2,D 3), LC/MS /MS is recom marianne d: order code [id number] (virgil ents >2yrs ). See Note 1 Note 1 For addit ional infor santo vega e refer to http: //[facility] tim burnett.Neel stDia gnost ics.c om/fa q/FAQ 199 (This link is being provi ded for infor kalyn dorantes/ dayanara kwan purpo ses only. ) Not Available Access Network [facility] [address] [address] , [place], [address], 01/21/2024 07:42:28 01/20/20 24 01/23/2024 VITAM IN B1 (THIA MINE) , BLOOD , LC/MS /MS vitamin B1 (thiamine), blood, lc/MS/MS 111 nmol/ L 78-185 (Note ) Vitam in suppl ement ation withi n 24 hours prior to blood draw may affec t the accur acy of the resul ts. This test was devel oped and its kaity tical perfo rmanc e jennifer cteri stics have been deter mined by [facility]. It has not been clear ed or appro velasquez by FDA. This assay has been valid ated pursu ant to the CLIA regul ation s and is used for clini yadira purpo ses. MDF med fusio n [address] [facility] [address] [place] [address] [phone] Ithshara Tenorio MD, PhD Not Available [facility] [address] [address] [place], [address], 01/23/2024 12:54:58 01/20/20 24 01/24/2024 RICKE TTSIA (RMSF ) IGG,I GM W/REF L TO TITER S rmsf IgG NOT DETECT ED normal Not Available [address] [address] [place], [address], 01/24/2024 21:27:04 01/20/20 24 01/24/2024 RICKE TTSIA (RMSF ) IGG,I GM W/REF L TO TITER S rmsf IgM NOT DETECT ED normal REFER ENCE RANGE : NOT DETEC MARIA D Not Available [address] [address] [place], [address], 01/24/2024 21:27:04 01/20/20 24 01/23/2024 EHRLI MAURY CHAFF EENSI S (IGG, IGM) E. chaffeensis Ab IgG <1:64 normal Not Available [facility] [address] [address] [place], [address], 01/23/2024 17:24:28 01/20/20 24 01/23/2024 EHRLI MAURY CHAFF EENSI S (IGG, IGM) E. chaffeensis Ab IgM <1:20 normal Not Available [facility] [address] [address] [place], [address], 01/23/2024 17:24:28 01/20/20 24 01/23/2024 EHRLI MAURY CHAFF EENSI S (IGG, IGM) interpretati on normal ANTIB PORFIRIO NOT DETEC MARIA D REFER ENCE RANGE : IgG <1:64 IgM <1:20 Sohan augustinei s has been ident ified as the causa tive agent of Human Monoc ytic Sohan lind is (HME) . Infec maria d indiv idual s produ ce speci fic antib odies to E. aaronff eensi s that can be detec maria d by an immun ofluo resce nt antib porfirio (IFA) test. Singl e IgG IFA titer s of 1:64 or great er indic ate expos ure to E. aaronff eensi s. A four- fold rise in IgG titer s betwe en acute and conva lesce nt sampl es and/o r the prese nce of IgM antib porfirio again st E. aaronff eensi s sugge st recen t or curre nt infec tion. This test was devel oped and its kaity tical perfo rmanc e jennifer cteri stics have been deter mined by [facility]. It has not been clear ed or appro velasquez by FDA. This assay has been valid ated pursu ant to the CLIA regul ation s and is used for clini yadira purpo ses. Not Available Access Network [facility] [address] [place], [address], 01/23/2024 17:24:28 01/20/20 24 01/22/2024 ANTIN UCLEA R ANTIB ODIES TITER AND PATTE RN titer 1:40 titer high A low level titer may be prese nt in pre-c linic al autoi mmune disea ses and grace l indiv idual s. Refer ence Range <1:40 Negat shari 1:40- 1:80 Low Antib porfirio Level >1:80 [place] maria d Antib porfirio Level Not Available [facility] [address] [place], [address], 01/22/2024 11:17:42 01/20/20 24 01/22/2024 ANTIN UCLEA R ANTIB ODIES TITER AND PATTE RN pattern Mitoti c, Spindl e Fibers abnormal The spind le fiber s betwe en the poles are stain ed in mitot ic cells , assoc iated with cone- shape d decor ation of the mitot ic poles . The patte rn is rare in Sjogr en's syndr ome, syste radha lupus eryth emato ana (SLE) , and other conne ctive tissu e disea ses. AC-25 : Spind le Fiber s Inter natio nal Conse nsus on Patte rns (http s://d oi.or g/10. 1515/ [facility]- 2017- 0052) Not Available [address] [address] [place], [address], 01/22/2024 11:17:42 01/20/20 24 01/22/2024 TIER 1 DNA (ds) antibody <1 IU/mL normal IU/mL Inter preta tion < or = 4 Negat shari 5-9 Indet ermin ate > or = 10 Posit shari Not Available [address] [address] [place], [address], 01/22/2024 13:56:51 01/20/20 24 01/22/2024 TIER 1 sm antibody <1.0 NEG ai <1.0 neg normal Not Available [facility] [address] [address] [place], [address], 01/22/2024 13:56:51 01/20/20 24 01/22/2024 TIER 1 sm/stove tender antibody <1.0 NEG ai <1.0 neg normal Not Available [facility] [address] [address] [place], [address], 01/22/2024 13:56:51 01/20/20 24 01/22/2024 TIER 1 stove tender antibody <1.0 NEG ai <1.0 neg normal Not Available [address] [address] [place], [address], 01/22/2024 13:56:51 01/20/20 24 01/22/2024 TIER 1 chromatin (nucleosomal ) antibody <1.0 NEG ai <1.0 neg normal Not Available [address] [address] [place], [address], 01/22/2024 13:56:51 01/20/20 24 01/22/2024 TIER 2 sjogren's antibody (ss-A) <1.0 NEG ai <1.0 neg normal Not Available [address] [address] [place], [address], 01/22/2024 13:56:52 01/20/20 24 01/22/2024 TIER 2 sjogren's antibody (ss-B) <1.0 NEG ai <1.0 neg normal Not Available [address], [address], 01/22/2024 13:56:52 01/20/20 24 01/22/2024 TIER 2 scl-70 antibody <1.0 NEG ai <1.0 neg normal Not Available [address], [address], 01/22/2024 13:56:52 01/20/20 24 01/22/2024 TIER 2 mary grace-1 antibody <1.0 NEG ai <1.0 neg normal Not Available [address] [address] [place], [address], 01/22/2024 13:56:52 01/20/20 24 01/22/2024 TIER 3 centromere B antibody <1.0 NEG ai <1.0 neg normal Not Available [address] [place], [address], 01/22/2024 13:56:52 01/20/20 24 01/22/2024 TIER 3 ribosomal P antibody <1.0 NEG ai <1.0 neg normal The [place] does not rule out autoi mmune disea se jennifer cteri zed by other autoa ntibo dy speci ficit ies such as rheum atoid arthr itis, autoi mmune hepat itis, prima ry bilia ry cirrh osis, autoi mmune thyro iditi s, [place] on's disea se, perni cious anemi a, autoi mmune neuro pathi es, vascu litis , danelle c disea se and bullo us disea se. Pleas e conta ct your local [facility] labor atory if you are inter ested in addit ional testi ng. Not Available [facility] [address] [address] [place], [address], 01/22/2024 13:56:52 01/20/20 24 01/22/2024 INTER PRETA TION interpretati on All three negat shari tiers indic ate the absen ce of detec table antib odies to compo nent kaity fozia consi sting of doubl e stran ded DNA (dsDN A), chrom atin, ribon ucleo prote in (WALL CRANE OPERATOR) , Henry /WALL CRANE OPERATOR (Sm/R DISK SANDER), Henry (Sm), SS-A, SS-B, Mary Grace-1, Scl-7 0, centr omere B and ribos omal P. A negat shari resul t shoul d be inter prete d in the pranav xt of the clini yadira and labor atory findi ngs. Not Available [facility] [address] [address] [place], [address], 01/22/2024 13:56:53 01/20/20 24 01/20/2024 TSH, serum or plasm a TSH 0.50 uIU/m L 0.49-3 .82 normal Not Available [facility] ([facility]) [address] [place], [address], 01/20/2024 09:41:15 Result Notes None recorded. Problems Name Problem SNOMED Code Status Onset Date Resolution Date Notes Provider Name and Address Organization Details Recorded Time Atypical chest pain 557851186 Active Emilie alfredo [facility], [place] 13:13:40 Chest pain 68579555 Active Emilie Pliler [facility] 4 13:13:47 Drug therapy finding 199894219 Active Emilie Lisa [facility] 4 13:13:40 Numbness of limbs 217847061 Active Emilie Lisa [facility] 4 13:13:40 History of atrial flutter 106779429 Active Emilie Lisa [facility] 4 13:13:40 Atrial fibrilla tion 53830031 Active Emilieerin Lisa [facility] 4 13:13:40 COVID-19 370084456 Active Emilie Lisa [facility] 4 13:13:40 Atrial fibrilla tion 69161639 Completed 202105/23/2022 Atrial Flutter - Status is Inactive ; 05/23/20 7:54AM by Slick Gotti on/João dum; Promoted ; acuity set as *; Not Available [facility] 3 03:08:18 Hyperten sive disorder 66529861 Active 2022 HYPERTEN JUSTINA; Impressi on: Blood pressure is improved on current medicati ons. continue to monitor at home.; Recorded 11/16/19 1:52PM by Berkley Haider, Office Visit; Promoted ; acuity set as *; Fernanda Hodge [facility] 5 10:05:36 Atrial flutter 5118538 Active 2022 ATRIAL FLUTTER; Impressi on: still awaiting second opinion, but the patient is still consider ing ablation .; Recorded 11/16/19 1:52PM by Berkley Haider, Office Visit; Promoted ; acuity set as *; Not Available [facility] 3 03:08:18 Low back pain 875096132 Active 2023 Nancy Garcia MD [address] [place] [address], [address] [place] [address] , [facility], LRoxanne 4 09:35:42 Edie powell 41813041 Active 2023 Nancy Garcia MD [address] [place] [address], [address] [place] [address] , [facility], LRoxanne 4 09:40:13 Fatigue 95373197 Active 2023 Nancy Garcia MD [address] [place] [address], [address] [place] [address] , [facility], Mino 4 09:41:20 Vitamin D deficien cy 52067068 Active 2023 Nancy Garcia MD [address] [place] [address], [address] [place] [address] , [facility], LRoxanne 4 09:46:15 Anti-nuc lear factor detected 142169995 Active 2023 Nancy Garcia MD [address] [place] [address], [address] [place] [address] , [facility], LRufinoLRufinoCRufino 4 09:46:52 Problem Notes None recorded. Medical Equipment None Reported. Allergies Allergen ID Allergen Name Allergen Category Reaction Reaction Severity Criticality Documentation Date Start Date Code Code System Note Provider Name and Address Organization Details Recorded Time 09928 No known allergy (situatio n) Not available Not available Not available Not available 05/28/2024 82233 6003 SNOMED Emilieerin Lisa [facility], [place] 4 13:13:21 No known drug allergies Medications Name Sig Start Date Stop Date Status Note LastModified by Organization Details LastModified Time amoxicill in 500 mg capsule TAKE 1 CAPSULE BY MOUTH THREE TIMES A DAY 01/19 completed Not Available Not Available Not Available prednison e 20 mg tablet TAKE 1 TAB 3 TIMES DAILY FOR 3 DAYS, THEN 1 TAB TWICE DAILY FOR 2 DAYS, THEN 1 TAB DAILY FOR 2 DAYS 01/19 completed Not Available Not Available Not Available amoxicill in 875 mg tablet TAKE 1 TABLET BY MOUTH TWICE A DAY FOR 7 DAYS 01/19 completed Not Available Not Available Not Available cefuroxim e axetil 500 mg tablet TAKE 1 TABLET BY MOUTH TWICE A DAY active Not Available Not Available No t Available albuterol sulfate HFA 90 mcg/actua tion aerosol inhaler 1 puff by inhalati on route. 2021 active Not Available Not Available Not Avai lable losartan 100 mg tablet TAKE 1 TABLET BY MOUTH EVERY DAY active Not Available Not Available No t Available metoprolo l tartrate 25 mg tablet TAKE 1 TABLET BY MOUTH TWICE A DAY 2023 active Not Available Not Available Not Avai lable metoprolo l tartrate daily 01/19 completed 0; Recorded 11/16/19 1:52PM by Berkley Haider, Office Visit; Not Available Not Available Not Available losartan daily 01/19 completed 0; Recorded 11/16/19 1:52PM by Berkley Haider, Office Visit; Not Available Not Available Not Available Vitals Date Recorded Body weight Body mass index (BMI) Body height Body temperature Oxygen saturation Oxygen saturation in Arterial blood by Pulse oximetry Heart rate Systolic And Diastolic Provider Name and Address Organization Details Last Updated DateTime 4 16274.4 5 g 27.5 kg/m2 180.34 cm 97.4 [degF] 97 % 97 % 78 /min 140/84 mm[Hg] TAYLOR EDWARDS [facility] 4 09:21:33 Date Recorded Body height Respiratory rate Body mass index (BMI) Body weight Body temperature Heart rate Oxygen saturation Oxygen saturation in Arterial blood by Pulse oximetry Systolic And Diastolic Provider Name and Address Organization Details Last Updated DateTime 4 180.34 cm 20 /min 27.3 kg/m2 90835.3 1 g 97.6 [degF] 70 /min 98 % 98 % 100/60 mm[Hg] CHARLA DUFF [facility] 4 09:30:38 Social History None recorded. Functional Status None recorded. Mental Status None recorded. Family History Nothing Reported. Medical History No medical history recorded. Immunizations Vaccine Type Date Status Note Provider Nam e and Address Organization Details Recorded Time Tdap 2 completed Emilie alfredo [facility] 05/28/2024 13:14:08 Td (adult), 2 Lf tetanus toxoid, preservative free, adsorbed 7 completed Emilie alfredo [facility]LR[facility]CR[facility] 05/28/2024 13:14:08 Past Encounters Encounter ID Performer Location Encounter Start Date Encounter Closed Date Diagnosis/Indication Diagnosis SNOMED-CT Code Diagnosis ICD10 Code Diagnosis Note [id number] Nancy Garcia MD [facility] ([facility]) [address] [place] [id number] 01/20/2024 09:14:24 01/20/2024 10:25:22 Low back pain 842607513 M54.50 Atrial flutter 5040138 I 48.92 Hypertensive disorder 38 161667 I10 Polyneuropathy 64882344 G62.9 Fatigue 97384181 R53.83 Tick bite 04108599 W57.X XXS [id number] Nancy Garcia MD [facility] ([facility]) [address] [place] [id number] 2024 09:23:34 2024 09:51:36 Vitamin D deficiency 44402914 E55.9 Patient does have low vitamin D. Williams supplement ation and the patient intends to start over-the-c ounter vitamin D3. Anti-nucle ar factor detected 055361400 R76.8 The patient's lab work was unremarkab le except for positive . No other significan t bodies were noted. This could potentiall y be related to the patient's symptoms and recommend rheumatolo gy evaluation . Atrial flutter 4869990 I 48.92 We do not have results of the Holter monitor at this time. We will call patient with results when we receive them. Continue with current dose of metoprolol . Health Concerns Section Related Observation LastModified by Organization Detai ls LastModified Time None Recorded Concern Status LastModified by Organization Details LastModified Time None Recorded Advance Directives Directive None Recorded Payers Insurance Date Sequence Insurance Name Policy Number Policy Fry Covered Member ID Fry Member ID Guarantor Name 01/29/2024 1 [employer]) [id number] Yoan Trent Tere [id number] Yoan Carranza Notes Date Note Type Note Provider Name and Address Organization Details Recorded Time 01/20/2024 text/html Back PainReporte d by PatientHPIFor location, patient reportsradiation to leg __,radiation to foot __,radiation to ankle __,radiation to arm __, andradiation to hand __. For associated symptoms, patient reportsweakness,numbne ss, andtingling. For quality, patient reportstinglinganddull . For duration, patient reports1 weeks. This is a 33-year-old that comes in today to discuss current issues. Patient has noticed that he has been tired and fatigued. The patient has been having numbness and tingling in bilateral hands and feet. States that it has been pretty constant and the patient ended up in the ER for evaluation. He underwent evaluation which included lab work and imaging and all were unremarkable. The patient was started on steroids and his symptoms did improve. Patient is currently on a steroid taper. Patient reports that he has been having fluctuating heart rate and it will get down into the 40s. Patient's blood pressure has been fairly labile. She also reports he has been having low back pain. Nancy Garcia MD [address] [place] [address], [phone], [facility] 01/20/2024 17:17:15 2024 text/html Is a 33-year-old gentleman that comes in today for follow-up on recent lab work and test. Patient states that he has completed his Holter monitor. Patient denies any new symptoms today. Nancy Garica MD [address] [place] [address], [phone], [facility] 2024 13:39:26
[2025-04-23 12:17] VITALS: BP 161/106; PULSE 77; RESP 16; TEMP 36.7; O2SAT 100
[2025-04-23 14:16] LABS: Alanine Aminotransferase 24 U/L (0-41); Albumin Level 4.8 g/dL (3.5-5.2); Alkaline Phosphatase 69 U/L (40-130); Anion Gap 19.3 (5-19); Aspartate Amino Transferase 19 U/L (0-40); Blood Urea Nitrogen 14 mg/dL (6-20); Calcium 9.5 mg/dL (8.5-10.5); Carbon Dioxide 21 mmol/L (22-29); Chloride 101 mmol/L (98-107); Creatinine Clr Calc Pharmacy 113.5149; Globulin 3.2 g/dL (1.3-4.6); Glucose 112 mg/dL (65-115); Osmolality Calculated 287 mOsm/kg (285-295); Potassium 3.3 mmol/L (3.5-5.1); Sodium 138 mmol/L (136-145); Total Protein 8.0 g/dL (6.6-8.7)
[2025-04-23 14:37] LABS: Hematocrit 46.1 % (37-53); Hemoglobin 15.70 g/dL (11.27-16.99); Mean Corpuscular HGB Conc 34.1 g/dL (30-55); Mean Corpuscular Hemoglobin 30.0 pg (27-33); Mean Corpuscular Volume 88.1 fl (82-101); Nucleated Red Blood Cells % 0 %; Platelet Count 325 10^3/cmm (157-399); Red Blood Count 5.23 10^6/uL (3.85-5.65); White Blood Count 6.46 10^3/uL (3.29-11.43)
[2025-04-23 15:19] VITALS: BP 148/102; PULSE 75; RESP 16; O2SAT 98
[2025-04-23 15:31] VITALS: BP 153/113; PULSE 79; RESP 18; O2SAT 100
--- NOTE | 2025-04-23 15:32 | ED_ITS ---
HPI - General Adult 2 General: Chief complaint: General Medical Stated complaint: high bp, headaches Time Seen by Provider: 04/23/25 15:18 History of Present Illness: 35-year-old male with a history of hyper tension who presents emergency room with concerns for hypertension. He says that he used to take medicine for blood pressure but his blood pressure was getting low so his primary stopped the medication. Said last night he had a headache and he checked his blood pressure and it was elevated. He checked his blood pressure again today and it was elevated yet again. He has no neurologic symptoms. No chest pain. No altered mental status. No focal motor deficits. Related Data Home Medications ?Medication ?Instructions ?Recorded ?Confirmed albuterol sulfate 90 mcg/actuation 1 puff inhalation Q 6H PRN 08/15/22 01/16/24 aerosol inhaler Shortness Of Breath Previous Rx's ?Medication ?Instructions ?Recorded cefuroxime axetil 500 mg tablet 500 mg PO BID #20 tabs 10/11/24 mupirocin 2 % topical ointment 1 applic topical BID #2 2 grams 10/11/24 clonidine HCl 0.1 mg tablet 0.1 mg PO DAILY #20 tabs 0 04/23/25 Allergies Allergy/AdvReac Type Severity Reaction Status Date / Time No Known Allergies Allergy Verified 10/11/24 11:25 Review of Systems 2 Narrative: Constitutional symptoms: Negative except as documented in HPI. Skin symptoms: Negative except as documented in HPI. Eye symptoms: Negative except as documented in HPI. ENMT symptoms: Negative except as documented in HPI. Respiratory symptoms: Negative except as documented in HPI. Cardiovascular symptoms: Negative except as documented in HPI. Gastrointestinal symptoms: Negative except as documented in HPI. Genitourinary symptoms: Negative except as documented in HPI. Musculoskeletal symptoms: Negative except as documented in HPI. Neurologic symptoms: Negative except as documented in HPI. Psychiatric symptoms: Negative except as documented in HPI. Endocrine symptoms: Negative except as documented in HPI. PFSH ED 2 PFSH: Medical History (Updated 04/23/25 @ 15:32 by Codie Call MD) On anticoagulant therapy Chest pain Atrial fibrillation Hypertension Tried lisinopril, but did not like the way it made him feel Surgical History Hx of oral surgery Hx of vasectomy Family History Grandfather Clotting disorder Lung disease Stroke Family/Other CAD (coronary artery disease) Cancer Father Diabetes Grandmother Lung disease Grandfather Lung disease Denies family history of Dementia Chronic kidney disease (CKD) Suicide Anesthesia complication Bleeding disorder Social History Smoking and tobacco/nicotine status: never used tobacco/nicotine Alcohol intake: current Substance/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 Skin: Warm, dry. Head: Normocephalic, atraumatic. Neck: Supple, trachea midline. Eye: Extraocular movements are intact. Ears, nose, mouth and throat: mucosa moist. Cardiovascular: Regular, Normal peripheral perfusion. Respiratory: Lungs are clear to auscultation, respirations are non-labored, breath sounds are equal, Symmetrical chest wall expansion. Gastrointestinal: Soft, Nontender, Non distended Musculoskeletal: Normal ROM, no deformity. Neurological: Alert and oriented, No focal neurological deficit observed. Psychiatric: Cooperative, appropriate mood & affect. Course 2 Vital Signs: Vital signs: Vital Signs Temperature 98.0 F 04/23/25 12:17 Pulse Rate 79 04/23/25 15:31 Respiratory Rate 18 04/23/25 15:31 Blood Pressure 153/113 04/23/25 15:31 Pulse Oximetry 100 04/23/25 15:31 Oxygen Delivery Me thod Room Air 04/23/25 12:17 [facility] - General Adult Medical Decision Making Medical decision making: Differential diagnosis including but not limited to and based on the above HPI, review of systems and physical exam: Patient presents with hypertension: Essential hypertension. Stroke. acute coronary syndrome. kidney failure. congestive heart failure. anxiety. Orders placed to evaluate differential diagnosis based on the above differential, HPI and physical exam EKG: Time 1223. Rate 75. Normal sinus rhythm, No ST-T changes, no ectopy, normal IN & QRS intervals, This was reviewed and interpreted by the ER physician at 1228 Lab Review: Laboratory results were reviewed and interpreted by myself the emergency room physician. No leukocytosis. No anemia. No renal failure. I reviewed the patient's medical record. Assessment and plan: Hypertension ?Clonidine in the emergency room. We discussed taking his blood pressure daily and that the headache could have been the cause of the high blood pressure of the high blood pressure could cause the headache but either way he needs to monitor his blood pressure and follow-up with his primary care provider. - Discharged home - Discussed plan with patient. Answered any questions. - Evaluation and treatment of this problem were appropriate in the emergency setting. Lab Data 04/23/25 13:10 04/23/25 13:10 Laboratory Results WBC 6.46 10^3/uL (3.29-11.43) 04/23/25 13:10 RBC 5.23 10^6/uL (3.85-5.65) 04/23/25 13:10 Hgb 15.70 g/dL (11.27-16.99) 04/23/25 13:10 Hct 46.1 % (37-53) 04/23/25 13:10 MCV 88.1 fl (82-101) 04/23/25 13:10 MCH 30.0 pg (27-33) 04/23/25 13:10 MCHC 34.1 g/dL (30-55) 04/23/25 13:10 RDW 12.5 % (12.1-15.1) 04/23/25 13:10 Plt Count 325 10^3/cmm (157-399) 04/23/25 13:10 MPV 11.6 fL (7.4-10.4) H 04/23/25 13:10 Neut % (Auto) 56.7 % 04/23/25 13:10 Lymph % (Auto) 31.4 % 04/23/25 13:10 [place] % (Auto) 9.4 % 04/23/25 13:10 Eos % (Auto) 1.2 % 04/23/25 13:10 Baso % (Auto) 0.8 % 04/23/25 13:10 Neut # (Auto) 3.66 10^3/uL (1.8-7.7) 04/23/25 13:10 Lymph # (Auto) 2.0 10^3/uL (0.8-4.8) 04/23/25 13:10 [place] # (Auto) 0.6 10^3/uL (0.2-0.9) 04/23/25 13:10 Eos # (Auto) 0.1 10^3/uL (0.0-0.8) 04/23/25 13:10 Baso # (Auto) 0.1 10^3/uL (0.0-0.1) 04/23/25 13:10 Nucleated RBC % (auto) 0 % 04/23/25 13:10 Nucleated RBCs # 0.0 /100WBC 04/23/25 13:10 Sodium 138 mmol/L (136-145) 04/23/25 13:10 Potassium 3.3 mmol/L (3.5-5.1) L 04/23/25 13:10 Chloride 101 mmol/L (98-107) 04/23/25 13:10 Carbon Dioxide 21 mmol/L (22-29) L 04/23/25 13:10 Anion Gap 19.3 (5-19) H 04/23/25 13:10 BUN 14 mg/dL (6-20) 04/23/25 13:10 Creatinine 1.0 mg/dL (0.7-1.2) 04/23/25 13:10 GFR Calculation 85.0 mL/min (90-130) L 04/23/25 13:10 Glucose 112 mg/dL (65-115) 04/23/25 13:10 Calculated Osmolality 287 mOsm/kg (285-295) 04/23/25 13:10 Calcium 9.5 mg/dL (8.5-10.5) 04/23/25 13:10 Total Bilirubin 0.5 mg/dL (0.15-1.2) 04/23/25 13:10 AST 19 U/L (0-40) 04/23/25 13:10 ALT 24 U/L (0-41) 04/23/25 13:10 Alkaline Phosphatase 69 U/L (40-130) 04/23/25 13:10 Total Protein 8.0 g/dL (6.6-8.7) 04/23/25 13:10 Albumin 4.8 g/dL (3.5-5.2) 04/23/25 13:10 Globulin 3.2 g/dL (1.3-4.6) 04/23/25 13:10 No radiology studies performed this visit Discharge Plan Discharge Patient Disposition: Home Clinical Impression: Hypertension Condition: Stable Prescriptions: New clonidine HCl 0.1 mg tablet 0.1 mg PO DAILY Qty: 20 0RF Rx Instructions: For Systolic >185 diastolic >100. If you are needing this more than once a day you need to follow with your primary care provider No Action cefuroxime axetil 500 mg tablet 500 mg PO BID Qty: 20 0RF mupirocin 2 % ointment 1 applic topical BID Qty: 22 0RF albuterol sulfate 90 mcg/actuation HFA aerosol inhaler 1 puff INHALATION Q6H PRN (Reason: Shortness Of Breath) Discharge Orders: Discharge ED (Routine); Ordered 04/23/25 Ordered By: Codie Call Referrals: Danis Garcia MD [Primary Care Provider, Family Practice] Discharge Diet: Usual diet Discharge Activity: Increase activity as tolerated Patient Instructions: Hypertension (ED), Opioid Safety, Pain Management, Patient Portal & Shanna Instructions Activity Restrictions/Additional Instructions: Thank you for choosing [facility] for your healthcare needs today. You have been screened and evaluated and felt safe for discharge. Health conditions do change or evolve sometimes and as such it is important that you follow up with your Primary Doctor to be re checked, 3-5 days is a general good time frame for follow up. You are always welcome to return to the ED for re assessment if your symptoms are worsening or you have new concerns Print Language: Singaporean Coding Level of Care Code ED Mechanical Development Engineer for Theron Kaplan
[2025-04-23 15:38] VITALS: BP 164/116
[2025-04-23 15:49] VITALS: BP 164/116; PULSE 81; O2SAT 96
== END 2025-04-23 15:51 | disposition home or self-care (01) ==
PROVIDERS: Nurse Practitioner; Emergency Provider Emergency Medicine; PCP Family Medicine
DX: I10 Essential (primary) hypertension (principal)
CPT/HCPCS: 36415; 80053; 85025; 93005; 99284; J9999